=== PATIENT | female | born 1995 | race Caucasian/White ===

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

== ENCOUNTER 2019-07-05 03:35 | Observation (INO) ==
[2019-07-05] MEDS ORDERED: fentaNYL citrate 100 MCG/2 ML VIAL IV STA ×2 (04:07→05:32)
[2019-07-05] MEDS ORDERED: SODIUM CHLORIDE 0.9% 1000ML 1,000 ML IV ONE (04:07)
[2019-07-05] MEDS ORDERED: ONDANSETRON INJ 2 MG/ML 2 ML VIAL IV STA ×2 (04:07→06:59)
[2019-07-05 04:19] LABS: Basophils # (auto) 0.01 K/uL (0-0.2); Basophils % (auto) 0.1 %; Eosinophils # (auto) 0.05 K/uL (0-0.5); Eosinophils % (auto) 0.6 %; Hematocrit (blood only) 37.3 % (37-47); Hemoglobin 12.9 g/dL (12.0-16.0); Immature Granulocytes # (auto) 0.02 K/uL (0.00-0.02); Immature Granulocytes % (auto) 0.2 %; Lymphocytes # (auto) 2.59 K/uL (1.2-3.4); Lymphocytes % (auto) 31.6 %; Mean Corpuscular Hemoglobin 27.8 pg (25-34); Mean Corpuscular Hgb Conc 34.6 g/dL (32-36); Mean Corpuscular Volume 80.4 fL (80-100); Mean Platelet Volume 11.1 fL (7.4-10.4); Monocytes # (auto) 0.47 K/uL (0.11-0.59); Monocytes % (auto) 5.7 %; Neutrophils # (auto) 5.05 K/uL (1.4-6.5); Neutrophils % (auto) 61.8 %; Platelet Count 206 K/uL (130-400); RDW Coefficient of Variation 14.5 % (11.5-14.5); RDW Standard Deviation 41.1 fL (36.4-46.3); Red Blood Count 4.64 M/uL (4.2-5.4); White Blood Count 8.19 K/uL (4.8-10.8)
[2019-07-05] MEDS ORDERED: IOVERSOL 100ml IV PRN (04:33)
[2019-07-05 04:48] LABS: Pregnancy Test, Serum Negative (Negative)
[2019-07-05 04:49] LABS: Alanine Aminotransferase 30 U/L (12-78); Albumin Level 3.6 gm/dl (3.4-5.0); Alkaline Phosphatase 98 U/L (45-117); Aspartate Aminotransferase 19 U/L (15-37); BUN Creatinine Ratio 7.5 (10-20); Bilirubin,Total 0.3 mg/dl (0.2-1); Blood Urea Nitrogen 6 mg/dl (7-18); Calcium 8.7 mg/dl (8.5-10.1); Carbon Dioxide 19 mmol/L (21-32); Chloride 111 mmol/L (98-107); Est GFR (Non-African American) 112.1; Glucose 88 mg/dl (70-99); Lipase 78 U/L (73-393); Sodium 139 mmol/L (136-145)
[2019-07-05 05:04] LABS: Appearance Urine Clear (Clear); Bilirubin Urine Negative (Negative); Blood Urine Negative (Negative); Color Urine Yellow; Glucose Urine UA Negative (Negative); Ketones Urine Negative (Negative); Leukocyte Esterase Urine Negative (Negative); Nitrite Urine Negative (Negative); Protein Urine Negative (Negative); Specific Gravity Urine 1.009 (1.000-1.030); Urobilinogen Urine Negative (Negative); pH Urine 5.5 (4.5-7.5)
--- NOTE | 2019-07-05 06:22 | CT Scan Report ---
CT abd pelvis IV con only CT DOSE: 642.15 mGy.cm HISTORY: Pain diffuse abdominal pain s/p colonoscopy TECHNIQUE: Multiaxial CT images of the abdomen and pelvis were performed following the use of intrave nous contrast. A dose lowering technique was utilized adhering to the principles of ALARA. COMPARISON STUDY: None. FINDINGS: Lung bases are clear. Liver spleen and pancreas are unremarkable. Kidneys negative for hydr onephrosis. Prior cholecystectomy. Kidneys enhance uniformly. Nonobstructive bowel pattern. Normal appendix. Bilateral septated ovarian cyst. On the left, cysts are present measuring 3.3 and 2.5 cm bilaterally. On the right there is a cyst measuring 2.6 cm. There is a moderate amount of fluid within the pelvic cul-de-sac. Findings of chronic sigmoid diverticulosis are present. IMPRESSION: 1. Bilateral ovarian cysts. 2. Moderate free fluid within the pelvic cul-de-sac. 3. Mild chronic sigmoid diverticulosis. 4. Prior cholecystectomy. ACT 112: Negative or not required by law. The above report was generated using voice recognition software. It may contain grammatical, syntax or spelling errors. Electronically signed by: Nghia Seo M.D. 07/05/2019 6:20 AM
[2019-07-05] MEDS ORDERED: HYDROmorphone INJ 0.5 MG/0.5 ML SYR IV PRN (06:30)
[2019-07-05] MEDS ORDERED: HYDROmorphone INJ 1 MG/ML SYRINGE IV STA (06:30)
--- NOTE | 2019-07-05 06:58 | Emergency Department Note ---
Entered by Jeffry Snow acting as a scribe for Mike Murray MD ED Provider Note Name: Mariella Rivera Age: 23 Arrives Via: Walk in Informant: Patient CC: Abdominal pain HPI: The patient is a 23 year old female who presents to the emergency [facility] with complaints of constant abdominal pain beginning yesterday. The patient states that she has a history of Celiacs disease, hypothyroidism, gastroparesis, and endometriosis. She notes that she developed abdominal pain yesterday, and she reports that her pain worsened last night. The patient states that her pain is mostly in her lower abdomen, and she notes that her pain worsens with movement. She rates her pain as a 9/10. She reports that she has 6- 7 episodes of bloody diarrhea a day. She denies any vomiting and urinary symptoms. She reports that she had a colonoscopy done a week ago, and she states that she has had a cholecystectomy. ROS: See above HPI for pertinent positives & negatives. A total of 10 systems reviewed and were otherwise negative. Past Medical History: Celiac disease, hypothyroid, gastroparesis, previous C diff infections, endometriosis, asthma, ADHD Past Surgical History: Cholecystectomy, tonsillectomy, adenoidectomy, wisdom teeth extraction, EGD Family History: Cancer, hypothyroid, asthma Social History: [employer] student, lives with roommates, never smoker, drinks alcohol, does not use drugs Home Medications: Please see medication list Allergies: Penicillin, wheat Physical: Vitals: BP 150/87, Pulse 121, Resp 20, Temp 98.2 F, O2 Sat Exam: GENERAL: Patient is severely uncomfortable appearing and in no acute distress. Writhing around bed. Dehydrated appearing. EYES: No scleral icterus, unremarkable pupils. ENT: Mucous membranes dry, no nasal congestion. NECK: No masses appreciated, no meningismus, trachea is midline. RESPIRATORY: No dyspnea. Clear to auscultation and equal bilaterally. No wheeze, no rhonchi. CARDIOVASCULAR: Regular rate and rhythm. No murmurs, rubs, gallops appreciated. GASTROINTESTINAL: Abdomen soft, no peritonitis. Bowel sounds positive. No masses appreciated. Diffuse tenderness throughout entire abdomen. BACK: No midline tenderness, no CVA tenderness EXTREMITIES: Normal motion all extremities, no cyanosis, no edema. NEUROLOGIC: Alert and oriented, no acute motor or sensory deficits, no focal weakness, cranial nerves grossly intact. SKIN: No rash, no jaundice, no diaphoresis. ED Course: Prior Medical Record, Triage/Nursing Notes, Medications, Allergies reviewed by Me 0401: Per review of EMR, the patient has a history of Celiac's disease, hypothyroid, gastroparesis, and previous C diff infections. She has been worked up for Crohn's disease, but endoscopically has no findings of this. The patient has had multiple EGDs and colonoscopies. She is on a fluid diet and azithromycin. She has 4-5 episodes of diarrhea a day and has fecal incontinence at night. She had repeat labs and a repeat colonoscopy done a week ago, but the results have not yet returned. 0403: The patient was evaluated in room A11. A complete history and physical exam was performed. 0500: I rechecked the patient. She has improvement of her pain and declined further pain medication. 0630: I reevaluated and updated the patient. She states that her pain is starting to return. She denies any history of ovarian cysts. She notes that she is unaware of cysts on an US she had from several months ago. Declines me calling parents. Vital Signs: reviewed and remarkable for tachy, hypertensive Labs: Reviewed and remarkable for wnl Interventions: saline lock, nss bolus 1 L IV, fentanyl 75mcg IV x 2, Dilaudid 1 mg IV Imaging: Radiology results as stated below per my review and the radiologist's interpretation: CT abd pelvis IV con only FINDINGS: Lung bases are clear. Liver spleen and pancreas are unremarkable. Kidneys negative for hydronephrosis. Prior cholecystectomy. Kidneys enhance uniformly. Nonobstructive bowel pattern. Normal appendix. Bilateral septated ovarian cyst. On the left, cysts are present measuring 3.3 a nd 2.5 cm bilaterally. On the right there is a cyst measuring 2.6 cm. There is a moderate amount of fluid within the pelvic cul-de-sac. Findings of chronic sigmoid diverticulosis are present. IMPRESSION: 1. Bilateral ovarian cysts. 2. Moderate free fluid within the pelvic cul-de-sac. 3. Mild chronic sigmoid diverticulosis. 4. Prior cholecystectomy. ACT 112: Negative or not required by law. The above report was generated using voice recognition software. It may contain grammatical, syntax or spelling errors. Electronically signed by: Nghia Seo M.D. 07/05/2019 6:20 AM Blood pressure: Normal. No Referral necessary Disposition: Signed out to Dr Hanson pending US Differential: Appendicitis, Ovarian Issue, Perforated bowel, Diverticulitis, PUD/Gastritis, Biliary Pathology, UTI, Pyelonephritis, Renal Colic, Bowel Obstruction, amongst other pathologies entertained. Medical Decision Makin yr old female with Celiac disease, hypothyroid, gastroparesis, previous C diff infections, endometriosis, asthma, ADHD who had Colonoscopy last week and arrives with acutely worsening lower abdominal pain radiating throughout. Pain difficult to control here. Labs OK with Vitals improved with pain control and fluids. CT with bilateral ovarian cysts and left septated one with moderate free fluid in pelvis. Given continued pain and these findings US ordered for further evaluation. Signed out to Dr Hanson for further management. Impression: Ruptured Ovarian Cyst Mike Murray MD The scribe's documentation has been prepared under my direction and personally reviewed by me in its entirety. I confirm that the note above accurately reflects all work, treatment, procedures, and medical decision making performed by me. Impression & Plan Ovarian cyst rupture Past Med/Surg History Medical History (Updated 07/05/19 @ 06:58 by Mike Murray MD) ADHD (attention deficit hyperactivity disorder) (Acute) Anemia Asthma inhaler daily Celiac disease Endometriosis Gastroparesis History of Clostridium difficile colitis Hypothyroidism IBS (irritable bowel syndrome) (Acute) IBS (irritable bowel syndrome) Migraine Surgical History (Updated 03/16/19 @ 08:41 by Meenakshi Lindquist RN) H/O colonoscopy History of esophagogastroduodenoscopy (EGD) History of repair of left rotator cuff History of tonsillectomy and adenoidectomy S/P cholecystectomy S/P wisdom tooth extraction Family History (Updated 03/16/19 @ 13:35 by Rachelle Zaldivar) Grandmother (Paternal) Colorectal cancer Mother Hypothyroid BCC (basal cell carcinoma of skin) Father Asthma Other No family history of adverse response to anesthesia Social History Preferred Language: [place] Citizen Communication Ability: Effective 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 Beliefs That Will Affect Care: None Current Living Situation: Other Current Living Situation Comment: [employer] with 3 roommates Feels Safe at Home: Yes Smoking Status: Never smoker Second Hand Exposure: No ; Hx Alcohol Use: Yes Alcohol type: wine and hard liquor Hx Substance Use: No Results & Data Vital Signs Vital Signs - 24 hr 07/05/19 03:38 07/05/19 05:26 07/05/19 06:20 Temperature 36.8 C Temperature Source Oral Pulse Rate 121 H Pulse Rate [Right Finger] 85 73 Pulse Rhythm [Right Finger] Regular Regular Pulse Strength [Right Finger] Normal Normal Respiratory Rate 20 18 16 Respiratory Effort / Characteristics Non-Labored Non-Labored Respiratory Depth Normal Normal Normal Blood Pressure 150/87 H Blood Pressure [Right Arm] 111/56 L 104/52 L Blood Pressure Mean 108 Blood Pressure Mean [Right Arm] 74 69 Blood Pressure Position Sitting Blood Pressure Position [Right Arm] Lying Lying Pulse Oximetry 99 98 97 Oxygen Delivery Method Room Air Room Air Room Air Sepsis Recent Fever Within 48 Hours No Sepsis Action Taken by Nursing No Action Required 07/05/19 06:43 Temperature Temperature Source Pulse Rate Pulse Rate [Right Finger] 88 Pulse Rhythm [Right Finger] Pulse Strength [Right Finger] Respiratory Rate 16 Respiratory Effort / Characteristics Respiratory Depth Normal Blood Pressure Blood Pressure [Right Arm] 105/60 Blood Pressure Mean Blood Pressure Mean [Right Arm] 75 Blood Pressure Position Blood Pressure Position [Right Arm] Lying Pulse Oximetry 98 Oxygen Delivery Method Room Air Sepsis Recent Fever Within 48 Hours Sepsis Action Taken by Half-Way Medications Current Medication List: was personally reviewed by me Laboratory Data Attestation: I reviewed the patient's lab results. Result diagrams: 07/05/19 04:10 07/05/19 04:10 Lab Results 07/05/19 07/05/19 07/05/19 Range/Units 04:10 04:10 04:10 WBC 8.19 (4.8-10.8) K/uL RBC 4.64 (4.2-5.4) M/uL Hgb 12.9 (12.0-16.0) g/dL Hct 37.3 (37-47) % MCV 80.4 (80-100) fL MCH 27.8 (25-34) pg MCHC 34.6 (32-36) g/dL RDW Std Deviation 41.1 (36.4-46.3) fL RDW Coeff of Leah 14.5 (11.5-14.5) % Plt Count 206 (130-400) K/uL MPV 11.1 H (7.4-10.4) fL Immature Gran % (Auto) 0.2 % Neut % (Auto) 61.8 % Lymph % (Auto) 31.6 % Pennington % (Auto) 5.7 % Eos % (Auto) 0.6 % Baso % (Auto) 0.1 % Immature Gran # (Auto) 0.02 (0.00-0.02) K/uL Neut # (Auto) 5.05 (1.4-6.5) K/uL Lymph # (Auto) 2.59 (1.2-3.4) K/uL Pennington # (Auto) 0.47 (0.11-0.59) K/uL Eos # (Auto) 0.05 (0-0.5) K/uL Baso # (Auto) 0.01 (0-0.2) K/uL Sodium 139 (136-145) mmol/L Potassium 4.0 (3.5-5.1) mmol/L Chloride 111 H (98-107) mmol/L Carbon Dioxide 19 L (21-32) mmol/L Anion Gap 9.0 (3-11) BUN 6 L (7-18) mg/dl Creatinine 0.76 (0.6-1.2) mg/dl POC Creatinine (0.6-1.3) mg/dl Est Cr Clr Drug Dosing Not Reportable Est GFR ( Amer) 130.0 Est GFR (Non-Af Amer) 112.1 BUN/Creatinine Ratio 7.5 L (10-20) Glucose 88 (70-99) mg/dl Calcium 8.7 (8.5-10.1) mg/dl Total Bilirubin 0.3 (0.2-1) mg/dl Direct Bilirubin (0-0.2) mg/dl AST 19 (15-37) U/L ALT 30 (12-78) U/L Alkaline Phosphatase 98 (45-117) U/L Total Protein 7.0 (6.4-8.2) gm/dl Albumin 3.6 (3.4-5.0) gm/dl Lipase 78 (73-393) U/L HCG, Qual Negative (Negative) Specimen Hemolysis Urine Color Urine Appearance (Clear) Urine pH (4.5-7.5) Ur Specific Edmondson (1.000-1.030) Urine Protein (Negative) Urine Glucose (UA) (Negative) Urine Ketones (Negative) Urine Blood (Negative) Urine Nitrite (Negative) Urine Bilirubin (Negative) Urine Urobilinogen (Negative) Ur Leukocyte Esterase (Negative) 07/05/19 07/05/19 Range/Units 04:11 04:17 WBC (4.8-10.8) K/uL RBC (4.2-5.4) M/uL Hgb (12.0-16.0) g/dL Hct (37-47) % MCV (80-100) fL MCH (25-34) pg MCHC (32-36) g/dL RDW Std Deviation (36.4-46.3) fL RDW Coeff of Leah (11.5-14.5) % Plt Count (130-400) K/uL MPV (7.4-10.4) fL Immature Gran % (Auto) % Neut % (Auto) % Lymph % (Auto) % Pennington % (Auto) % Eos % (Auto) % Baso % (Auto) % Immature Gran # (Auto) (0.00-0.02) K/uL Neut # (Auto) (1.4-6.5) K/uL Lymph # (Auto) (1.2-3.4) K/uL Pennington # (Auto) (0.11-0.59) K/uL Eos # (Auto) (0-0.5) K/uL Baso # (Auto) (0-0.2) K/uL Sodium (136-145) mmol/L Potassium (3.5-5.1) mmol/L Chloride (98-107) mmol/L Carbon Dioxide (21-32) mmol/L Anion Gap (3-11) BUN (7-18) mg/dl Creatinine (0.6-1.2) mg/dl POC Creatinine 0.9 (0.6-1.3) mg/dl Est Cr Clr Drug Dosing Est GFR ( Amer) Est GFR (Non-Af Amer) BUN/Creatinine Ratio (10-20) Glucose (70-99) mg/dl Calcium (8.5-10.1) mg/dl Total Bilirubin (0.2-1) mg/dl Direct Bilirubin (0-0.2) mg/dl AST (15-37) U/L ALT (12-78) U/L Alkaline Phosphatase (45-117) U/L Total Protein (6.4-8.2) gm/dl Albumin (3.4-5.0) gm/dl Lipase (73-393) U/L HCG, Qual (Negative) Specimen Hemolysis Urine Color Yellow Urine Appearance Clear (Clear) Urine pH 5.5 (4.5-7.5) Ur Specific Edmondson 1.009 (1.000-1.030) Urine Protein Negative (Negative) Urine Glucose (UA) Negative (Negative) Urine Ketones Negative (Negative) Urine Blood Negative (Negative) Urine Nitrite Negative (Negative) Urine Bilirubin Negative (Negative) Urine Urobilinogen Negative (Negative) Ur Leukocyte Esterase Negative (Negative) Administered Medications Ioversol (Optiray 320 100ml) 100 ml IV ONCE PRN PRN Reason: Interaction Checking Stop: 07/09/19 04:32 Last Admin: 07/05/19 04:33 Dose: 92 ml Documented by: [id number] Discontinued Medications Fentanyl Citrate (Fentanyl Citrate) 75 mcg IV NOW STA Stop: 07/05/19 04:08 Last Admin: 07/05/19 04:22 Dose: 75 mcg Documented by: [id number] Fentanyl Citrate (Fentanyl Citrate) 75 mcg IV NOW STA Stop: 07/05/19 05:33 Last Admin: 07/05/19 05:37 Dose: 75 mcg Documented by: [id number] Hydromorphone HCl (Dilaudid) 1 mg IV NOW STA Stop: 07/05/19 06:31 Last Admin: 07/05/19 06:36 Dose: 1 mg Documented by: [id number] Sodium Chloride (Nss 1000ml) 1,000 mls @ 999 mls/hr IV .Q1H1M ONE Stop: 07/05/19 05:07 Last Infusion: 07/05/19 05:37 Dose: 0 mls/hr Documented by: [id number] Admin: 07/05/19 04:22 Dose: 999 mls/hr Documented by: [id number] Ondansetron HCl (Zofran) 4 mg IV NOW STA Stop: 07/05/19 04:08 Last Admin: 07/05/19 04:22 Dose: 4 mg Documented by: [id number] Discharge Plan Visit Data Chief Complaint: Abdominal Pain Stated Complaint: SEVERE ABDOMINAL PAIN ED Provider: Trevor,Mike F Discharge Problem: Ovarian cyst rupture Forms Stand Alone Forms: My [facility] Prescriptions Prescriptions: No Action 1.5/30 (28) 1.5 mg-30 mcg (21)/75 mg (7) tablet 1 tab PO DAILY Qty: 28 RF: 9 esomeprazole magnesium [Nexium] 40 mg capsule,delayed release(DR/EC) 40 mg PO QAM RF: 0 fluticasone propion-salmeterol [Wixela Inhub] 250-50 mcg/dose blister with device 1 puffs INH BID RF: 0 clindamycin phosphate 1 % lotion 1 appln TOP BID Qty: 60 RF: 1 fluocinonide 0.05 % solution 1 appln TOP BID Qty: 60 RF: 1 ketoconazole 2 % shampoo 1 appln TOP ONCE Qty: 120 RF: 2 levothyroxine 88 mcg tablet 88 mcg PO QAM RF: 0 ferrous sulfate [Iron (ferrous sulfate)] 325 mg (65 mg iron) Tablet 325 mg PO QAM RF: 0 cholecalciferol (vitamin D3) [Vitamin D3] 1,000 unit Capsule 1,000 unit PO QAM RF: 0 The scribe's documentation has been prepared under my direction and personally reviewed by me in its entirety. I confirm that the note above accurately reflects all work, treatment, procedures, and medical decision making performed by me.
[2019-07-05] MEDS ORDERED: ONDANSETRON INJ 2 MG/ML 2 ML VIAL IV PRN ×2 (07:00→09:44)
--- NOTE | 2019-07-05 07:13 | Emergency Department Note ---
ED Visit Note Received patient in signout. History and physical verified by me. Patient is awaiting ultrasound results. Reviewed patient's ultrasound with her. At this point I feel the patient can be safely discharged home with pain medication however the patient is refusing. She wishes to have admission. I did discuss the case with the hospitalist service who did agree to admit the patient. .
--- NOTE | 2019-07-05 08:03 | Ultrasound Report ---
US pelvic complete HISTORY: 23 years-old Female pelvic pain, free fluid in pelvis, cysts on CT acute pelvic pain with h istory of endometriosis. COMPARISON: CT abdomen and pelvis of same day TECHNIQUE: Multiple real-time sonographic images of the deep pelvic structures were obtained transabd ominally and transvaginally assessing grayscale appearance, color and spectral flow FINDINGS: TRANSABDOMINAL: Anteflexed uterus measures 7.4 x 3.4 x 4.8 cm. Ovaries are not well seen transabdominally. TRANSVAGINAL: Mild to moderate free fluid within the cul-de-sac. Endometrium is unremarkable, 4 mm. Uterus appears unremarkable without myometrial mass lesion. Right ovary measures 1.8 x 2.7 x 1.9 cm. Right ovary is partially obscured by bowel. Mildly complex c ystic focus of the right ovary measures 1.3 cm. Arterial inflow and venous outflow to the right ovary is documented. Left ovary measures 4.1 x 4.9 x 4.9 cm demonstrating multiple cystic foci suggestive of follicles. Th ick-walled cystic lesion of the left ovary measures 3.6 x 2.5 x 2.2 cm. Mildly complex cystic structu re of the left ovary is noted posteriorly, 2.0 x 1.2 x 2.6 cm. Arterial inflow and venous outflow to the left ovary is documented. IMPRESSION: 1. Unremarkable sonographic appearance of uterus and endometrium. 2. Mild to moderate free fluid within the cul-de-sac. 3. Multiple small cystic and mildly complex cystic foci of the ovaries as above including what appear s to be a simple cyst of left ovary measuring 3.0 cm. 4. No large endometriomas or evidence of ovarian torsion. ACT 112: Negative or not required by law. The above report was generated using voice recognition software. It may contain grammatical, syntax o r spelling errors. Electronically signed by: Markus Charles M.D. 07/05/2019 8:01 AM
[2019-07-05] MEDS ORDERED: ACETAMINOPHEN 325 MG TAB PO PRN (09:44)
[2019-07-05] MEDS ORDERED: IRON SUCROSE 100 MG in 0.9 % SODIUM CHLORIDE 100 ML IV SCH (09:44)
[2019-07-05] MEDS ORDERED: HYDROmorphone INJ 1 MG/ML SYRINGE IV PRN (09:44)
[2019-07-05] MEDS: SODIUM CHLORIDE 0.9% 1000ML 1,000 ML IV SCH ×2 (10:35→22:16)
[2019-07-05] MEDS: PROCHLORPERAZINE 10 MG in SYRINGE 8 ML IV PRN (10:46)
[2019-07-05] MEDS ORDERED: IRON SUCROSE 300 MG in SODIUM CHLORIDE 0.9% 250 ML IV SCH (11:00)
--- NOTE | 2019-07-05 11:01 | Gastrointestinal Consultation ---
Date of Consultation July 05, 2019 Assessment & Plan (1) Celiac disease: Recent TTG normal -Continue 100% gluten-free diet -Continue follow-up with [facility] (2) Abdominal pain: -Mom is requesting SE[employer] eval due to ovarian cysts--will defer to hospitalist service -GI symptoms are stable and patient identifies that the current pain is not desk representative of her chronic GI issues; Would encourage her to follow-up with [facility] regarding the results of her biopsies from her colonoscopy last week. Of note, their outpatient records suggested a trial of Amitriptyline if her colonoscopy is unremarkable. Of note, patient's mother also reported that she is to have an iron infusion per hematology today. She reports that they were told by hematology that this could be given as an inpatient. Will defer this to hospitalist service. No plans for GI intervention at present, so there is presently no GI objection to feeding the patient. Present on Admission?: Yes (3) Gastroparesis: -Continue gastroparesis diet -Continue outpatient follow-up with [facility] Present on Admission?: Yes Supervising Physician Co-Signing Physician Notes Agree with MARCELO Dejesus as above Abd: Soft, Tender, ND, +BS Continue current therapy Will request records from recent EGD/Colonoscopy Appreciate Dr. rAce's input History of Present Illness Reason for Consultation: "abdominal pain, h/o of Celiac Disease" Attending Physician: Ji Mcintyre History of Present Illness Patient is a 23 yo female with a PMH of gastroparesis, Celiac Disease, IBS, & functional abdominal pain treated initially at [facility] then transitioned to [facility] as an adult. She is currently under their care and most recently saw them last week for a colonoscopy to r/o Crohn's Disease. The patient reports that recently, she developed a different kind of abdominal pain which she describes as lower, pelvic abdominal pain. 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 Ultrasounds on admission indicated ovarian cysts. From a GI standpoint, she reports all of her symptoms are stable and have not worsened throughout this episode. She follows a gluten-free diet and this helps significantly. She is awaiting biopsy results from [facility] from the colonoscopy last week. She had an EGD & colonoscopy in March 2019 as well that were unremarkable. She denies nausea, vomiting, or worsening bowel habit changes. Mom is at bedside and is questioning SE[employer] eval. Allergies Allergy/AdvReac Type Severity Reaction Status Date / Time gluten Allergy Severe celiac's Verified 07/05/19 04:08 disease wheat Allergy Severe celiac's Verified 07/05/19 04:08 disease Penicillins Allergy Intermediate Hives Verified 07/05/19 04:08 Home Medications Home Medications Medication Instructions Recorded Confirmed Type esomeprazole magnesium 40 mg 40 mg PO QAM cap 01/17/19 07/05/19 History capsule,delayed release cholecalciferol (vitamin D3) 1,000 unit PO QAM 03/16/19 07/05/19 History [Vitamin D3] ferrous sulfate [Iron (ferrous 325 mg PO QAM 03/16/19 07/05/19 History sulfate)] fluticasone 250 mcg-salmeterol 50 1 puffs INH BID 03/16/19 07/05/19 History mcg/dose blistr powdr for inhalation levothyroxine 88 mcg PO QAM 03/16/19 07/05/19 History norethindrone 1.5 mg-ethinyl 1 tab PO DAILY #28 tab 05/08/19 07/05/19 Rx estradiol 30 mcg(21)/iron 75 mg(7) tablet clindamycin phosphate 1 % lotion 1 appln TOP BID #60 ml 06/30/19 07/05/19 Rx fluocinonide 0.05 % topical 1 appln TOP BID #60 ml 06/30/19 07/05/19 Rx solution ketoconazole 2 % shampoo 1 appln TOP ONCE #120 ml 06/30/19 07/05/19 Rx Patient History Medical History ADHD (attention deficit hyperactivity disorder) (Acute) Anemia Asthma inhaler daily Celiac disease Endometriosis Gastroparesis History of Clostridium difficile colitis Hypothyroidism IBS (irritable bowel syndrome) (Acute) IBS (irritable bowel syndrome) Migraine Surgical History H/O colonoscopy History of esophagogastroduodenoscopy (EGD) History of repair of left rotator cuff History of tonsillectomy and adenoidectomy S/P cholecystectomy S/P wisdom tooth extraction Family History Grandmother (Paternal) Colorectal cancer Mother Hypothyroid BCC (basal cell carcinoma of skin) Father Asthma Other No family history of adverse response to anesthesia Social History Preferred Language: [place] Communication Ability: Effective C Unix 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 Required: No Beliefs That Will Affect Care: None Current Living Situation: Other Current Living Situation Comment: Roommate Other Information That Helps Us Care for You: No Feels Safe at Home: Yes Safety Concerns: Feels Safe At This Time Smoking Status: Never smoker Second Hand Exposure: No ; Hx Alcohol Use: Yes Alcohol type: beer and wine Hx Substance Use: No Review of Systems Constitutional: no fever and no chills Eyes: no acute issues Ear, Nose, Mouth, Throat: no acute issues Respiratory: no cough and no dyspnea Cardiovascular: no chest pain Gastrointestinal: + abdominal pain; no vomiting, no diarrhea/loose stools and no blood in stools Musculoskeletal: no joint pain Integumentary: no rash Neurologic: no acute issues Psychiatric: no acute issues Physical Exam Constitutional: WD/WN, vitals as above Eyes: PERRL, conjunctivae normal, anicteric sclerae ENMT: external ear and nose normal, oropharynx normal Neck: normal visual inspection Respiratory: normal respiratory effort, lungs clear to auscultation Cardiovascular: RRR, no murmur, no edema Gastrointestinal (Abdomen): normal bowel sounds, soft, nontender, no hepatosplenomegaly Musculoskeletal: no cyanosis or clubbing, extremities motor strength 5/5 Skin: no rashes, warm and dry Neurologic: normal speech Psychiatric: Orientation: alert and oriented x 3 Results & Data Vital Signs (Past 12 Hours) Vital Signs Temp Pulse Pulse Resp BP BP Pulse Ox 07/05/19 09:46 36.9 C 95 H 18 125/67 94 07/05/19 09:15 95 H 18 123/65 96 07/05/19 07:42 83 16 124/72 99 07/05/19 06:43 88 16 105/60 98 07/05/19 06:20 73 16 104/52 L 97 07/05/19 05:26 85 18 111/56 L 98 07/05/19 03:38 36.8 C 121 H 20 150/87 H 99 PG Care Time/CCT Total # of Minutes Spent Total Time Spent with Patient: Total time spent is greater than 50% in coordination of care (as documented) at patient's floor/unit and/or counseling patient: Coding Level of Care Code 52084 Inpt Consult Level 4 Diagnoses Celiac disease K90.0 Abdominal pain R10.30 Abdominal location: lower abdomen, unspecified Gastroparesis K31.84 (1) Abdominal pain Abdominal location: lower abdomen, unspecified Qualified Code(s): R10.30 - Lower abdominal pain, unspecified
--- NOTE | 2019-07-05 11:21 | Surgery Consultation ---
Date of Consultation July 05, 2019 Assessment & Plan (1) Ovarian cyst: This is a 23y F with a PMH of celiac's dz, h/o cdiff infection,gastroparesis, IBS, and is being worked up for Crohn's disease who presents to the [facility] today with abdominal pain. Workup with a CT and pelvic US revealed findings consistent with bilateral ovarian cysts and mild/moderate fluid in the pelvic cul de sac. Patient is afebrile and WBC 8.1. Findings likely consistent with a ruptured ovarian cyst? Would recommend patient be evaluated by gynecology for further evaluation. There are no findings on imaging or abdominal exam that at this time warrant surgical intervention. Please call us back if needed with any questions/concerns. History of Present Illness Attending Physician: Ji Mcintyre History of Present Illness This is a 23y F with a PMH of celiac's dz, h/o cdiff infection, gastroparesis, IBS, and is being worked up for Crohn's disease who presents to the [facility] ED this morning with complaints of abdominal pain. Patient reports that the pain started about 24 hours ago, but progressively worsened around 2AM. She says the pain is mostly located in the lower abdomen, sharp and stabbing in quality. Rates it a 10/10 when she came in and is now a 7/10 with any movement. She endorses nausea without vomiting and abdominal bloating. She denies fevers/chills, chest pain/ shortness of breath, or any urinary signs and symptoms. In the ED patient underwent a CT a/p that revealed bilateral ovarian cysts, with moderate fluid within the cul-de-sac. A pelvic US obtained thereafter showed similar findings, with no e/o ovarian torsion and a normal appearing uterus. She states her LMP was 1 wk ago, for her it lasts two days. She denies any vaginal pain, discharge, or urinary symptoms. Patient had a colonoscopy 1 wk ago at [facility] where biopsies where taken to evaluate for Crohn's. She says she normally has 5-6 bouts of diarrhea daily, sometimes bloody. Patient concerned as this pain is not similar to her pain related to her other chronic abdominal issues. Surgery was consulted for further evaluation. Allergies Allergy/AdvReac Type Severity Reaction Status Date / Time gluten Allergy Severe celiac's Verified 07/05/19 04:08 disease wheat Allergy Severe celiac's Verified 07/05/19 04:08 disease Penicillins Allergy Intermediate Hives Verified 07/05/19 04:08 Home Medications Home Medications Medication Instructions Recorded Confirmed Type esomeprazole magnesium 40 mg 40 mg PO QAM cap 01/17/19 07/05/19 History capsule,delayed release cholecalciferol (vitamin D3) 1,000 unit PO QAM 03/16/19 07/05/19 History [Vitamin D3] ferrous sulfate [Iron (ferrous 325 mg PO QAM 03/16/19 07/05/19 History sulfate)] fluticasone 250 mcg-salmeterol 50 1 puffs INH BID 03/16/19 07/05/19 History mcg/dose blistr powdr for inhalation levothyroxine 88 mcg PO QAM 03/16/19 07/05/19 History norethindrone 1.5 mg-ethinyl 1 tab PO DAILY #28 tab 05/08/19 07/05/19 Rx estradiol 30 mcg(21)/iron 75 mg(7) tablet clindamycin phosphate 1 % lotion 1 appln TOP BID #60 ml 06/30/19 07/05/19 Rx fluocinonide 0.05 % topical 1 appln TOP BID #60 ml 06/30/19 07/05/19 Rx solution ketoconazole 2 % shampoo 1 appln TOP ONCE #120 ml 06/30/19 07/05/19 Rx Patient History Medical History ADHD (attention deficit hyperactivity disorder) (Acute) Anemia Asthma inhaler daily Celiac disease Endometriosis Gastroparesis History of Clostridium difficile colitis Hypothyroidism IBS (irritable bowel syndrome) (Acute) IBS (irritable bowel syndrome) Migraine Surgical History H/O colonoscopy History of esophagogastroduodenoscopy (EGD) History of repair of left rotator cuff History of tonsillectomy and adenoidectomy S/P cholecystectomy S/P wisdom tooth extraction Family History Grandmother (Paternal) Colorectal cancer Mother Hypothyroid BCC (basal cell carcinoma of skin) Father Asthma Other No family history of adverse response to anesthesia Social History Preferred Language: Indian Communication Ability: Effective Mold Puller Required: No Beliefs That Will Affect Care: None Current Living Situation: Other Current Living Situation Comment: Roommate Other Information That Helps Us Care for You: No Feels Safe at Home: Yes Safety Concerns: Feels Safe At This Time Smoking Status: Never smoker Second Hand Exposure: No ; Hx Alcohol Use: Yes Alcohol type: beer and wine Hx Substance Use: No Review of Systems Constitutional: no fever and no chills Respiratory: no shortness of breath Cardiovascular: no chest pain Gastrointestinal: + abdominal pain (lower abdominal region, a little more so on the right), + bloating, + nausea and + diarrhea/loose stools; no vomiting Genitourinary: patient denies urinary S&S Physical Exam Physical Exam: awake/alert Constitutional: well developed and well nourished; no acute distress Respiratory: normal respiratory effort Gastrointestinal (Abdomen): Inspection/Auscultation: abdomen not distended Percussion/Palpation: + abdomen tender (tenderness to palpation in the lower abdominal regions) and abdomen soft; abdomen not firm Results & Data Vital Signs (Past 12 Hours) Vital Signs Temp Pulse Pulse Resp BP BP Pulse Ox 07/05/19 09:46 36.9 C 95 H 18 125/67 94 07/05/19 09:15 95 H 18 123/65 96 07/05/19 07:42 83 16 124/72 99 07/05/19 06:43 88 16 105/60 98 07/05/19 06:20 73 16 104/52 L 97 07/05/19 05:26 85 18 111/56 L 98 07/05/19 03:38 36.8 C 121 H 20 150/[address] abd pelvis IV con only CT DOSE: 642.15 mGy.cm HISTORY: Pain diffuse abdominal pain s/p colonoscopy TECHNIQUE: Multiaxial CT images of the abdomen and pelvis were performed following the use of intravenous contrast. A dose lowering technique was utilized adhering to the principles of ALARA. COMPARISON STUDY: None. FINDINGS: Lung bases are clear. Liver spleen and pancreas are unremarkable. Kidneys negative for hydronephrosis. Prior cholecystectomy. Kidneys enhance uniformly. Nonobstructive bowel pattern. Normal appendix. Bilateral septated ovarian cyst. On the left, cysts are present measuring 3.3 and 2.5 cm bilaterally. On the right there is a cyst measuring 2.6 cm. There is a moderate amount of fluid within the pelvic cul-de-sac. Findings of chronic sigmoid diverticulosis are present. IMPRESSION: 1. Bilateral ovarian cysts. 2. Moderate free fluid within the pelvic cul-de-sac. 3. Mild chronic sigmoid diverticulosis. 4. Prior cholecystectomy. ACT 112: Negative or not required by law. The above report was generated using voice recognition software. It may contain grammatical, syntax or spelling errors. Electronically signed by: Nghia Seo M.D. 07/05/2019 6:20 AM US pelvic complete HISTORY: 23 years-old Female pelvic pain, free fluid in pelvis, cysts on CT acute pelvic pain with history of endometriosis. COMPARISON: CT abdomen and pelvis of same day TECHNIQUE: Multiple real-time sonographic images of the deep pelvic structures were obtained transabdominally and transvaginally assessing grayscale appearance, color and spectral flow FINDINGS: TRANSABDOMINAL: Anteflexed uterus measures 7.4 x 3.4 x 4.8 cm. Ovaries are not well seen transabdominally. TRANSVAGINAL: Mild to moderate free fluid within the cul-de-sac. Endometrium is unremarkable, 4 mm. Uterus appears unremarkable without myometrial mass lesion. Right ovary measures 1.8 x 2.7 x 1.9 cm. Right ovary is partially obscured by bowel. Mildly complex cystic focus of the right ovary measures 1.3 cm. Arterial inflow and venous outflow to the right ovary is documented. Left ovary measures 4.1 x 4.9 x 4.9 cm demonstrating multiple cystic foci suggestive of follicles. Thick-walled cystic lesion of the left ovary measures 3.6 x 2.5 x 2.2 cm. Mildly complex cystic structure of the left ovary is noted posteriorly, 2.0 x 1.2 x 2.6 cm. Arterial inflow and venous outflow to the left ovary is documented. IMPRESSION: 1. Unremarkable sonographic appearance of uterus and endometrium. 2. Mild to moderate free fluid within the cul-de-sac. 3. Multiple small cystic and mildly complex cystic foci of the ovaries as above including what appears to be a simple cyst of left ovary measuring 3.0 cm. 4. No large endometriomas or evidence of ovarian torsion. ACT 112: Negative or not required by law. The above report was generated using voice recognition software. It may contain grammatical, syntax or spelling errors. PG Care Time/CCT Total # of Minutes Spent Total Time Spent with Patient: Total time spent is greater than 50% in coordination of care (as documented) at patient's floor/unit and/or counseling patient: Coding Level of Care Code 62232 Inpt Consult Level 3 Diagnoses Ovarian cyst N83.209
[2019-07-05] MEDS: PANTOprazole 40 MG TAB PO SCH (13:09)
[2019-07-05] MEDS: LEVOTHYROXINE SODIUM 88 MCG TABLET PO SCH (13:10)
[2019-07-05] MEDS: ERYTHROMYCIN ETHYLSUCC SUSP 200 MG/5 ML 100 ML BTL PO SCH ×3 (13:10→22:51)
--- NOTE | 2019-07-05 14:52 | History & Physical Report ---
Date of Service July 05, 2019 Assessment & Plan (1) Pelvic pain: - Likely related to ovarian cysts with possible rupture. - Imaging showed bilateral ovarian cysts with moderate free fluid within the pelvic cul-de-sac. - U/a negative; Lipase level WNL. - General surgery consulted, does not require intervention. - GI consulted, is not likely related to underlying GI abnormality. - Gynecology consulted, appreciate input. - Tylenol prn mild pain; Dilaudid IV prn severe pain -- pt. reports she cannot take Oxycodone, h/o hematemesis with oral narcotic. - IV fluids at 80 cc/hr; advance to gluten free diet for dinner. (2) Ovarian cyst: - As noted above. (3) Ovarian cyst rupture: - See above. (4) Endometriosis: - Pt. reports h/o endometriosis. - May be contributing to symptoms -- gynecology consulted. - Last menstrual period was last week. (5) Gastroparesis: - Continue home erythromycin 250 mg TID Wed-Wed. (6) Hypothyroidism: - Continue Synthroid 88 mcg daily. (7) Celiac disease: - H/o; follows with [facility]. - Consulted as inpatient, symptoms are not likely related to underlying celiac disease. - Continue gluten free diet. (8) Iron deficiency anemia: - On ferrous sulfate at home but scheduled to receive first IV iron infusion at cancer center today. - Has been evaluated by Dr. Baer in clinic. - Will give Venofer 300 mg IV x 1 dose; consider weekly infusions. (9) GERD (gastroesophageal reflux disease): - PPI daily. (10) History of Clostridium difficile colitis: - H/o; no evidence of acute infection at this time. (11) Uses control: - Continue home control as prescribed. (12) DVT prophylaxis: - SCDs; holding pharmacologic ppx, encourage ambulation. Dispo: Med/surg for obs status. Discharge pending improvement in abd/pelvic pain. History of Present Illness Chief Complaint: Pelvic pain Primary Care Provider: NO PCP Ms. Rivera is a 23 year old female with past medical history of hypothyroidism, GERD, ADHD, asthma, endometriosis, gastroparesis, migraines, celiac disease and C. diff colitis who presented with lower abdomen/pelvic pain. Pt. had a colonoscopy at [facility] on Wednesday of last week. She developed pelvic discomfort on Wednesday, rated as a 3/10 in the lower abdomen bilaterally. Pelvic pain was intermittent but increased in intensity this morning around 2:30 am. Pain was described as "stabbing", rated as a 8/10 without pain meds. Was worse in the RLQ>LLQ. She received multiple doses of IV narcotics in the ER; pain improved to 4-5/10 on pain scale. Has associated nausea, denies vomiting. Has been having bloody BMs over last 6 months -- led to colonoscopy on Wednesday. Denies fever/chills, SOB, chest pain, URI symptoms, dysuria or hematuria. ER course: She received Fentanyl and Dilaudid IV with mild improvement in pain. Will be admitted for further evaluation of pelvic pain. Allergies Allergy/AdvReac Type Severity Reaction Status Date / Time gluten Allergy Severe celiac's Verified 07/05/19 04:08 disease wheat Allergy Severe celiac's Verified 07/05/19 04:08 disease Penicillins Allergy Intermediate Hives Verified 07/05/19 04:08 Home Medications Home Medications Medication Instructions Recorded Confirmed Type esomeprazole magnesium 40 mg 40 mg PO QAM cap 01/17/19 07/05/19 History capsule,delayed release cholecalciferol (vitamin D3) 1,000 unit PO QAM 03/16/19 07/05/19 History [Vitamin D3] ferrous sulfate [Iron (ferrous 325 mg PO QAM 03/16/19 07/05/19 History sulfate)] fluticasone 250 mcg-salmeterol 50 1 puffs INH BID 03/16/19 07/05/19 History mcg/dose blistr powdr for inhalation levothyroxine 88 mcg PO QAM 03/16/19 07/05/19 History clindamycin phosphate 1 % lotion 1 appln TOP BID #60 ml 06/30/19 07/05/19 Rx ketoconazole 2 % shampoo 1 appln TOP ONCE #120 ml 06/30/19 07/05/19 Rx acetaminophen [Mapap 650 mg PO Q6H PRN #1 tab 07/06/19 Rx (acetaminophen)] clobetasol 0.05 % scalp solution 1 appln TOP DAILY #50 ml 07/06/19 Rx erythromycin 250 mg PO TID #1 tab 07/06/19 Rx norelgestromin 150 mcg-e.estradiol 1 patch TD Q7D #3 ea 07/06/19 Rx 35 mcg/24 hr weekly transderm patch norelgestromin 150 mcg-e.estradiol 1 patch TD Q7D #3 ea 07/06/19 Rx 35 mcg/24 hr weekly transderm patch Past Med/Surg History Medical History ADHD (attention deficit hyperactivity disorder) (Acute) Anemia Asthma inhaler daily Celiac disease Endometriosis Gastroparesis History of Clostridium difficile colitis Hypothyroidism IBS (irritable bowel syndrome) (Acute) IBS (irritable bowel syndrome) Migraine Surgical History H/O colonoscopy History of esophagogastroduodenoscopy (EGD) History of repair of left rotator cuff History of tonsillectomy and adenoidectomy S/P cholecystectomy S/P wisdom tooth extraction Family History Grandmother (Paternal) Colorectal cancer Mother Hypothyroid BCC (basal cell carcinoma of skin) Father Asthma Other No family history of adverse response to anesthesia Social History Preferred Language: Libyan Communication Ability: Effective Cigarette Tester Required: No Beliefs That Will Affect Care: None Current Living Situation: Other Current Living Situation Comment: Roommate Feels Safe at Home: Yes Smoking Status: Never smoker Second Hand Exposure: No ; Hx Alcohol Use: Yes Alcohol type: beer and wine Hx Substance Use: No Review of Systems Review of Systems: All systems reviewed & are unremarkable except as noted in HPI & below Constitutional: + anorexia; no fever, no chills, no fatigue and no weakness Respiratory: no cough, no dyspnea and no dyspnea on exertion Cardiovascular: no chest pain, no palpitations and no edema Gastrointestinal: + abdominal pain, + nausea and + melena; no vomiting, no constipation, no diarrhea/loose stools and no blood in stools Genitourinary: + pelvic pain; no dysuria, no difficulty urinating, no hematuria, no abnormal periods, no absent periods, no abnormal vaginal bleeding, no vaginal discharge and no vaginal odor Musculoskeletal: no back pain and no joint pain Integumentary: no non-healing lesions Physical Exam Physical Exam: General: Resting comfortably HEENT: NC/AT; PERRLA with EOMI; [place] conjunctiva, MMM. No erythema of posterior pharynx Neck: Supple and nontender Cardiac: RRR Lungs: CTA bilaterally Abdomen: Bowel normoactive X 4; TTP in pelvic region bilaterally. Rectal: Deferred : Deferred Extremities: Warm. No edema present Neuro: No focal weakness Skin: No rash Results & Data Vital Signs (Past 12 Hours) Vital Signs Temp Pulse Pulse Resp BP BP Pulse Ox 07/05/19 12:19 72 16 116/73 95 07/05/19 11:50 36.6 C 72 16 118/78 95 07/05/19 11:30 73 18 115/70 96 07/05/19 09:46 36.9 C 95 H 18 125/67 94 07/05/19 09:15 95 H 18 123/65 96 07/05/19 07:42 83 16 124/72 99 07/05/19 06:43 88 16 105/60 98 07/05/19 06:20 73 16 104/52 L 97 07/05/19 05:26 85 18 111/56 L 98 07/05/19 03:38 36.8 C 121 H 20 150/87 H 99 Laboratory Results 07/05/19 07/05/19 07/05/19 Range/Units 11:43 04:17 04:11 WBC (4.8-10.8) K/uL RBC (4.2-5.4) M/uL Hgb (12.0-16.0) g/dL Hct (37-47) % MCV (80-100) fL MCH (25-34) pg MCHC (32-36) g/dL RDW Std Deviation (36.4-46.3) fL RDW Coeff of Leah (11.5-14.5) % Plt Count (130-400) K/uL MPV (7.4-10.4) fL Immature Gran % (Auto) % Neut % (Auto) % Lymph % (Auto) % [place] % (Auto) % Eos % (Auto) % Baso % (Auto) % Immature Gran # (Auto) (0.00-0.02) K/uL Neut # (Auto) (1.4-6.5) K/uL Lymph # (Auto) (1.2-3.4) K/uL [place] # (Auto) (0.11-0.59) K/uL Eos # (Auto) (0-0.5) K/uL Baso # (Auto) (0-0.2) K/uL Sodium (136-145) mmol/L Potassium (3.5-5.1) mmol/L Chloride (98-107) mmol/L Carbon Dioxide (21-32) mmol/L Anion Gap (3-11) BUN (7-18) mg/dl Creatinine (0.6-1.2) mg/dl POC Creatinine 0.9 (0.6-1.3) mg/dl Est Cr Clr Drug Dosing Est GFR ( Amer) Est GFR (Non-Af Amer) BUN/Creatinine Ratio (10-20) Glucose (70-99) mg/dl Calcium (8.5-10.1) mg/dl Total Bilirubin (0.2-1) mg/dl Direct Bilirubin (0-0.2) mg/dl AST (15-37) U/L ALT (12-78) U/L Alkaline Phosphatase (45-117) U/L Total Protein (6.4-8.2) gm/dl Albumin (3.4-5.0) gm/dl Lipase (73-393) U/L Procalcitonin < 0.05 (0-0.5) ng/ml HCG, Qual (Negative) Specimen Hemolysis Urine Color Yellow Urine Appearance Clear (Clear) Urine pH 5.5 (4.5-7.5) Ur Specific [place] 1.009 (1.000-1.030) Urine Protein Negative (Negative) Urine Glucose (UA) Negative (Negative) Urine Ketones Negative (Negative) Urine Blood Negative (Negative) Urine Nitrite Negative (Negative) Urine Bilirubin Negative (Negative) Urine Urobilinogen Negative (Negative) Ur Leukocyte Esterase Negative (Negative) 07/05/19 07/05/19 07/05/19 Range/Units 04:10 04:10 04:10 WBC 8.19 (4.8-10.8) K/uL RBC 4.64 (4.2-5.4) M/uL Hgb 12.9 (12.0-16.0) g/dL Hct 37.3 (37-47) % MCV 80.4 (80-100) fL MCH 27.8 (25-34) pg MCHC 34.6 (32-36) g/dL RDW Std Deviation 41.1 (36.4-46.3) fL RDW Coeff of Leah 14.5 (11.5-14.5) % Plt Count 206 (130-400) K/uL MPV 11.1 H (7.4-10.4) fL Immature Gran % (Auto) 0.2 % Neut % (Auto) 61.8 % Lymph % (Auto) 31.6 % [place] % (Auto) 5.7 % Eos % (Auto) 0.6 % Baso % (Auto) 0.1 % Immature Gran # (Auto) 0.02 (0.00-0.02) K/uL Neut # (Auto) 5.05 (1.4-6.5) K/uL Lymph # (Auto) 2.59 (1.2-3.4) K/uL [place] # (Auto) 0.47 (0.11-0.59) K/uL Eos # (Auto) 0.05 (0-0.5) K/uL Baso # (Auto) 0.01 (0-0.2) K/uL Sodium 139 (136-145) mmol/L Potassium 4.0 (3.5-5.1) mmol/L Chloride 111 H (98-107) mmol/L Carbon Dioxide 19 L (21-32) mmol/L Anion Gap 9.0 (3-11) BUN 6 L (7-18) mg/dl Creatinine 0.76 (0.6-1.2) mg/dl POC Creatinine (0.6-1.3) mg/dl Est Cr Clr Drug Dosing Not Reportable Est GFR ( Amer) 130.0 Est GFR (Non-Af Amer) 112.1 BUN/Creatinine Ratio 7.5 L (10-20) Glucose 88 (70-99) mg/dl Calcium 8.7 (8.5-10.1) mg/dl Total Bilirubin 0.3 (0.2-1) mg/dl Direct Bilirubin (0-0.2) mg/dl AST 19 (15-37) U/L ALT 30 (12-78) U/L Alkaline Phosphatase 98 (45-117) U/L Total Protein 7.0 (6.4-8.2) gm/dl Albumin 3.6 (3.4-5.0) gm/dl Lipase 78 (73-393) U/L Procalcitonin (0-0.5) ng/ml HCG, Qual Negative (Negative) Specimen Hemolysis Urine Color Urine Appearance (Clear) Urine pH (4.5-7.5) Ur Specific [place] (1.000-1.030) Urine Protein (Negative) Urine Glucose (UA) (Negative) Urine Ketones (Negative) Urine Blood (Negative) Urine Nitrite (Negative) Urine Bilirubin (Negative) Urine Urobilinogen (Negative) Ur Leukocyte Esterase (Negative) Code Status & VTE Plan VTE Prophylaxis Plan VTE Prophylaxis will be ordered: Yes Supervising Physician Co-Signing Physician Notes Patient was seen and examined by me personally. I performed a brief history and physical exam. I reviewed the chart, the orders and discussed the plan in detail with Suze PALMER . I read this document and agree with its contents to entirety. Patient will be admitted. Will have patient be evaluaated by schedule analyst as this does not appear to be a surgical problem nor a GI problem given her clinical presentation. Will continue pain medications. PG Care Time/CCT Total # of Minutes Spent Total Time Spent with Patient: Total time spent is greater than 50% in coordination of care (as documented) at patient's floor/unit and/or counseling patient: Coding Level of Care Code 74139 OBS Care - Level 3 Diagnoses Pelvic pain R10.2 Ovarian cyst N83.209 Ovarian cyst rupture N83.209 Endometriosis N80.9 Gastroparesis K31.84 Hypothyroidism E03.9 Celiac disease K90.0 Iron deficiency anemia D50.9 GERD (gastroesophageal reflux disease) K21.9 History of Clostridium difficile colitis Z86.19 Uses control Z78.9 DVT prophylaxis Z29.9
[2019-07-05] MEDS ORDERED: KETOROLAC 30 MG/ML VIAL IV PRN (16:07)
[2019-07-05] MEDS ORDERED: ACETAMINOPHEN 1,000 MG/100 ML VIAL IV PRN (16:08)
[2019-07-05] MEDS ORDERED: JUNEL FE CONTRACEPTIVE PO SCH (20:00)
--- NOTE | 2019-07-05 20:31 | OB/GYN Consultation ---
Date of Consultation July 05, 2019 Assessment & Plan (1) Left lower quadrant pain: with evidence of free fluid in the pelvis and left small ovarian cyst, I suspect her pain was from this cyst that was leaking fluid. I suspect she is not absorbing her control pill well because of the frequent loose stools and there fore was able to ovulate this cycle. the timing of her pain coincides with midcycle. She was told she may have endometriosis but has not been scoped to confirm this diagnosis. 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 If she continues to require narcotics or IV pain meds over night, I would recommend repeating the ultrasound in the morning of 07/06. As of this report , it does not appear that she has had any more pain medications since the Dilaudid this morning at 9:30 am. If this was a leaking ovarian cyst, the pain should subside over the next few days. Because this looks like she ovulated while on a higher dose BCP, I recommend she switch to a different control that would bypass the GI tract and allow for more consistent absorption. Two options would be Xulane patches or Nuvaring which is inserted vaginally for 3 weeks then removed for 1 week before inserting a new ring. Mariella would like to try the Xulane patches at the start of her next cycle to see if it gives better control of dysmenorrhea and pain. 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 Mariella & her mother are agreeable to this plan. (2) Ovarian cyst: History of Present Illness Attending Physician: Ji Mcintyre This patient is a 23 yo white female with about a 2 day history lower abdominal pain mostly left sided that got progressively worse last night which brought her to the ER for evaluation. She has a history of gastroparesis, hypothyroidism, & Celiac's disease which is well controlled with gluten free diet however she has been having 4-6 episodes of very loose stools that can be bloody at times. She recently had a colonoscopy which was reported as normal findings with biopsies pending.She follows with a GI clinic at [place] for her Celiac's disease & ongoing diarrhea. She has been seen in our clinic for pelvic pain in the past as well as for dyspareunia. She reported pain with BM's as well. Her PCP in [place] suggested she may have endometriosis but she has not been scoped or tried on anything besides BCP's for her pain. A pelvic ultrasound in 2017 showed a normal pelvis with no evidence ovarian cysts. Her periods were heavy & very crampy on Astrid control pills and she was switched to Junel which she has been taking since 2018. She is consistent with taking her pills and has not taken any late. Last menses was 1 week ago & reported as light , lasting only 2 days with moderate cramping which is her normal period on this control pill. No breakthrough bleeding. She was seen in February, with ongoing pelvic pain especially left sided with intercourse. STD testing has been negative. She was to have an ultrasound scheduled but she never had this done. She denies any fever or chills, unusual vaginal discharge, or urinary symptoms. As part of her workup for the pelvic pain in the ER, she had an ultrasound which shows bilateral ovarian cysts. The right ovarian cyst is about 1 cm and mildly complex, the left ovary has a 3cm simple cyst and a mildly complex 2 cm cyst behind the ovary. There is a mild to moderate amount of free fluid in the pelvis. Currently Mariella is sleepy from the pain med she had at 9:30 in the AM , the time of this consult was 3 pm and she was starting to have an increase in her pain again. She was also having some nausea but attributed this to not having had anything to eat or drink since her arrival in the ERand she admits to feeling hungry now. HCG is negative and WBC count is normal. Her mother commented that Mariella has been anemic in the past & was to get an iron infusion possibly during her hospital stay. Allergies Allergy/AdvReac Type Severity Reaction Status Date / Time gluten Allergy Severe celiac's Verified 07/05/19 04:08 disease wheat Allergy Severe celiac's Verified 07/05/19 04:08 disease Penicillins Allergy Intermediate Hives Verified 07/05/19 04:08 Home Medications Home Medications Medication Instructions Recorded Confirmed Type esomeprazole magnesium 40 mg 40 mg PO QAM cap 01/17/19 07/05/19 History capsule,delayed release cholecalciferol (vitamin D3) 1,000 unit PO QAM 03/16/19 07/05/19 History [Vitamin D3] ferrous sulfate [Iron (ferrous 325 mg PO QAM 03/16/19 07/05/19 History sulfate)] fluticasone 250 mcg-salmeterol 50 1 puffs INH BID 03/16/19 07/05/19 History mcg/dose blistr powdr for inhalation levothyroxine 88 mcg PO QAM 03/16/19 07/05/19 History norethindrone 1.5 mg-ethinyl 1 tab PO DAILY #28 tab 05/08/19 07/05/19 Rx estradiol 30 mcg(21)/iron 75 mg(7) tablet clindamycin phosphate 1 % lotion 1 appln TOP BID #60 ml 06/30/19 07/05/19 Rx fluocinonide 0.05 % topical 1 appln TOP BID #60 ml 06/30/19 07/05/19 Rx solution ketoconazole 2 % shampoo 1 appln TOP ONCE #120 ml 06/30/19 07/05/19 Rx Patient History Medical History ADHD (attention deficit hyperactivity disorder) (Acute) Anemia Asthma inhaler daily Celiac disease Endometriosis Gastroparesis History of Clostridium difficile colitis Hypothyroidism IBS (irritable bowel syndrome) (Acute) IBS (irritable bowel syndrome) Migraine Surgical History H/O colonoscopy History of esophagogastroduodenoscopy (EGD) History of repair of left rotator cuff History of tonsillectomy and adenoidectomy S/P cholecystectomy S/P wisdom tooth extraction Family History Grandmother (Paternal) Colorectal cancer Mother Hypothyroid BCC (basal cell carcinoma of skin) Father Asthma Other No family history of adverse response to anesthesia Social History Preferred Language: Chilean Communication Ability: Effective Emergency Technician Required: No Beliefs That Will Affect Care: None Current Living Situation: Other Current Living Situation Comment: Roommate Other Information That Helps Us Care for You: No Feels Safe at Home: Yes Safety Concerns: Feels Safe At This Time Smoking Status: Never smoker Second Hand Exposure: No ; Hx Alcohol Use: Yes Alcohol type: beer and wine Hx Substance Use: No Review of Systems Review of Systems: All systems reviewed & are unremarkable except as noted in HPI & below Physical Exam Constitutional: WD/WN, vitals as above drowsy and is trying hard to focus but can answer questions without a problem Gastrointestinal (Abdomen): Percussion/Palpation: + abdomen tender (moderate tenderness to palpation) and abdomen soft; no guarding Psychiatric: A+Ox3, euthymic affect Results & Data Vital Signs (Past 12 Hours) Vital Signs Temp Pulse Resp BP Pulse Ox 07/05/19 15:30 98.4 F 62 16 144/69 H 97 07/05/19 12:19 72 16 116/73 95 07/05/19 11:50 97.9 F 72 16 118/78 95 07/05/19 11:30 73 18 115/70 96 07/05/19 09:46 98.4 F 95 H 18 125/67 94 07/05/19 09:15 95 H 18 123/65 96 PG Care Time/CCT Total # of Minutes Spent Total Time Spent with Patient: Total time spent is greater than 50% in coordination of care (as documented) at patient's floor/unit and/or counseling patient: Coding Level of Care Code 79027 Inpt Consult Level 3 Diagnoses Left lower quadrant pain R10.32 Ovarian cyst N83.209
[2019-07-05] MEDS ORDERED: ERYTHROMYCIN 250 MG TABEC PO SCH (21:00)
[2019-07-06] MEDS: PROCHLORPERAZINE 10 MG in SYRINGE 8 ML IV PRN (00:10)
[2019-07-06] MEDS: LEVOTHYROXINE SODIUM 88 MCG TABLET PO SCH (05:47)
[2019-07-06 05:52] LABS: Hematocrit (blood only) 36.5 % (37-47); Hemoglobin 12.4 g/dL (12.0-16.0); Mean Corpuscular Hemoglobin 27.8 pg (25-34); Mean Corpuscular Volume 81.8 fL (80-100); Mean Platelet Volume 11.4 fL (7.4-10.4); Platelet Count 205 K/uL (130-400); RDW Coefficient of Variation 14.3 % (11.5-14.5); RDW Standard Deviation 41.9 fL (36.4-46.3); Red Blood Count 4.46 M/uL (4.2-5.4); White Blood Count 5.35 K/uL (4.8-10.8)
[2019-07-06 06:28] LABS: Calcium 8.4 mg/dl (8.5-10.1); Creatinine Clr Calc Pharmacy 162.6 ml/min; Est GFR (African American) 149.4; Est GFR (Non-African American) 128.9; Potassium 3.6 mmol/L (3.5-5.1)
--- NOTE | 2019-07-06 08:19 | Gynecologic Progress Note ---
Date of Service July 06, 2019 Assessment & Plan (1) Ovarian cyst rupture: resolving pain. has not required dilaudid for 24 hours. will switch to Xulane patch to start with next control cycle will send script to pharmacy for her. follow up with me in 2-3 months in [facility] staff physician office. 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 no nausea or vomiting . tolerating regular diet. had one dose of IV toradol at midnight. none since. was able to ambulate to the bathroom & void without difficulty Review of Systems Review of Systems: All systems reviewed & are unremarkable except as noted in HPI & below Physical Exam Constitutional: WD/WN, vitals as above Gastrointestinal (Abdomen): normal bowel sounds, soft, nontender, no hepatosplenomegaly Percussion/Palpation: + abdomen tender (very mild tenderness with deep palpation-RLQ) and abdomen soft; no guarding Results & Data Vital Signs (Past 12 Hours) Vital Signs Temp Pulse Resp BP Pulse Ox 07/06/19 07:31 93/54 L 07/06/19 07:22 98.2 F 60 16 80/43 L 97 07/05/19 23:03 98.2 F 62 14 126/77 97 PG Care Time/CCT Total # of Minutes Spent Total Time Spent with Patient: Total time spent is greater than 50% in coordination of care (as documented) at patient's floor/unit and/or counseling patient: Coding Level of Care Code 22473 Subseq Hosp Care Lvl 2 Diagnoses Ovarian cyst rupture N83.209
[2019-07-06] MEDS: PANTOprazole 40 MG TAB PO SCH (09:02)
[2019-07-06] MEDS: ERYTHROMYCIN ETHYLSUCC SUSP 200 MG/5 ML 100 ML BTL PO SCH (10:00)
--- NOTE | 2019-07-06 14:01 | Discharge Summary ---
Date of Service July 06, 2019 Admission HPI Per Admitting Provider Ms. Rivera is a 23 year old female with past medical history of hypothyroidism, GERD, ADHD, asthma, endometriosis, gastroparesis, migraines, celiac disease and C. diff colitis who presented with lower abdomen/pelvic pain. Pt. had a colonoscopy at [facility] on Wednesday of last week. She developed pelvic discomfort on Wednesday, rated as a 3/10 in the lower abdomen bilaterally. Pelvic pain was intermittent but increased in intensity this morning around 2:30 am. Pain was described as "stabbing", rated as a 8/10 without pain meds. Was worse in the RLQ>LLQ. She received multiple doses of IV narcotics in the ER; pain improved to 4-5/10 on pain scale. Has associated nausea, denies vomiting. Has been having bloody BMs over last 6 months -- led to colonoscopy on Wednesday. Denies fever/chills, SOB, chest pain, URI symptoms, dysuria or hematuria. ER course: She received Fentanyl and Dilaudid IV with mild improvement in pain. Will be admitted for further evaluation of pelvic pain. Admission Exam Per Admitting Provider General: Resting comfortably HEENT: NC/AT; PERRLA with EOMI; [place] conjunctiva, MMM. No erythema of posterior pharynx Neck: Supple and nontender Cardiac: RRR Lungs: CTA bilaterally Abdomen: Bowel normoactive X 4; TTP in pelvic region bilaterally. Rectal: Deferred : Deferred Extremities: Warm. No edema present Neuro: No focal weakness Skin: No rash Principal Diagnosis Ovarian Cysts, Abdominal Pain Discharge Exam General: Resting comfortably HEENT: NC/AT; PERRLA with EOMI; [place] conjunctiva, MMM. No erythema of posterior pharynx Neck: Supple and nontender Cardiac: RRR Lungs: CTA bilaterally Abdomen: Bowel normoactive X 4; TTP in pelvic region bilaterally, R>L. Extremities: Warm. No edema present Neuro: No focal weakness Skin: No rash Discharge Data Allergies Allergy/AdvReac Type Severity Reaction Status Date / Time gluten Allergy Severe celiac's Verified 07/05/19 04:08 disease wheat Allergy Severe celiac's Verified 07/05/19 04:08 disease Penicillins Allergy Intermediate Hives Verified 07/05/19 04:08 Consultations 07/05/19 08:24 ED Decision to Admit Stat 07/05/19 09:44 Consult Gastroenterology Routine 07/05/19 10:59 Consult Gynecology Routine 07/05/19 11:05 Consult General Surgery Routine Ordered Studies 07/05/19 04:21 CT abd pelvis IV con only Urgent 07/05/19 06:30 US pelvic complete Stat 07/05/19 06:31 US transvaginal Stat Hospital Course (1) Pelvic pain: Likely related to ovarian cysts with possible rupture. Imaging showed bilateral ovarian cysts with moderate free fluid within the pelvic cul-de-sac. U/a negative; Lipase level WNL. General surgery consulted, does not require intervention. GI consulted, is not likely related to underlying GI abnormality. Gynecology consulted, appreciate input. Tylenol prn mild pain; Dilaudid IV prn severe pain -- cannot take Oxycodone or Ibuprofen, leads to hematemesis. Pain was well controlled with Toradol IV. Did not require ongoing doses of Dilaudid IV. IV fluids at 80 cc/hr; gluten free diet. Abd pain improved and pt. was stable for discharge to home on 07/06/19. Will convert to control patch following current cycle and f/u with Dr. Arce in 2-3 months. (2) Ovarian cyst: As noted above. (3) Ovarian cyst rupture: See above. (4) Endometriosis: Pt. reports h/o endometriosis. Gynecology consulted. Last menstrual period was last week. (5) Gastroparesis: Continued home erythromycin 250 mg TID Mon-Fri. (6) Hypothyroidism: Continued Synthroid 88 mcg daily. (7) Celiac disease: H/o; follows with [facility]. Consulted as inpatient, symptoms are not likely related to underlying celiac disease. Continued gluten free diet. (8) Iron deficiency anemia: On ferrous sulfate at home but scheduled to receive first IV iron infusion at cancer center on day of admission. Received Venofer 300 mg IV x 1 dose. F/u to discuss future transfusions. (9) GERD (gastroesophageal reflux disease): PPI daily. (10) History of Clostridium difficile colitis: H/o; no evidence of acute infection at this time. (11) Uses control: Continued home control as prescribed. (12) DVT prophylaxis: SCDs; held pharmacologic ppx, encourage ambulation. Discharged to home on 07/06/19. Total Time Total Time Spent Total Time Spent (In Minutes): >30 minutes Total Time Includes: Examination of the Patient, Discharge Planning, Medication Reconciliation, Communication With Other Providers and Other Discharge Plan Discharge Items Patient Disposition: Home - Self-Care Reason For Visit: ABDOMINAL PAIN Discharge Diagnosis: Abdominal Pain, Ovarian Cysts Condition on Discharge: Good Goals: You have been hospitalized for an acute medical problem. During your stay at [facility], we have made an effort to correct the problem that brought you to the hospital while keeping you as comfortable as possible. Medications were used to bring your condition under control and your discharge instructions will include directions for any medications you should take after leaving the hospital. Please make sure you see your Primary Care Provider as part of your follow up plan. Activity: As commented below Exercise/Sports: Gradually increase as tolerated Non-emergency contact: Primary Care Provider Call non-emergency contact if: you have any medication questions, your symptoms worsen, your pain is not controlled, your pain is worsening, your pain is unusual for you, your pain is concerning for you and you have a fever Follow-up/Referrals: PCP,NO [Primary Care Provider] - Diet: Regular Addtl Attending Provider Instructions: 1. Abdominal pain likely related to ovarian cysts * Please continue Tylenol 650 mg every 6 hours as needed for pain control at home. * Please discontinue oral control pill and start patch with your next cycle. * Please follow up with gynecology in 2-3 months. 2. Iron Deficiency Anemia * Please follow up for iron infusions in the cancer center as scheduled. Pending Studies at Discharge: No Stand-Alone Forms: My [facility], Work/School Release (Inpt) Medications and DC Order Prescriptions: New erythromycin 250 mg tablet,delayed release (DR/EC) 250 mg PO TID Qty: 1 RF: 0 acetaminophen [Mapap (acetaminophen)] 325 mg Tablet 650 mg PO Q6H PRN (Reason: pain) Qty: 1 RF: 0 Continued Xulane 150-35 mcg/24 hr patch weekly 1 patch TD Q7D Qty: 3 RF: 3 Xulane 150-35 mcg/24 hr patch weekly 1 patch TD Q7D Qty: 3 RF: 1 esomeprazole magnesium [Nexium] 40 mg capsule,delayed release(DR/EC) 40 mg PO QAM RF: 0 fluticasone propion-salmeterol [Wixela Inhub] 250-50 mcg/dose blister with device 1 puffs INH BID RF: 0 clindamycin phosphate 1 % lotion 1 appln TOP BID Qty: 60 RF: 1 ketoconazole 2 % shampoo 1 appln TOP ONCE Qty: 120 RF: 2 levothyroxine 88 mcg tablet 88 mcg PO QAM RF: 0 ferrous sulfate [Iron (ferrous sulfate)] 325 mg (65 mg iron) Tablet 325 mg PO QAM RF: 0 cholecalciferol (vitamin D3) [Vitamin D3] 1,000 unit Capsule 1,000 unit PO QAM RF: 0 Discontinued Junel FE 1.5/30 (28) 1.5 mg-30 mcg (21)/75 mg (7) tablet 1 tab PO DAILY Qty: 28 RF: 9 No Action clobetasol 0.05 % solution 1 appln TOP DAILY Qty: 50 RF: 0 Discharge Orders: Discharge Order (Routine); Ordered 07/06/19 Ordered By: Suze Jones Admission Data Admit Date/Time: 07/05/19 08:56 Attending Provider: Ji Mcintyre Admit Provider: Ji Mcintyre Primary Care Provider: PCP,NO Other Providers: Jenny Mello ; Mehran Latham ; Neisha Casas ; Connor Sauceda Other Interventions: Discharge Summary Assessment (RN) Last Done: 07/06/19 10:30 DC Date/Time DO NOT enter until pt leaves facility: 07/06/19 12:10 Supervising Physician Co-Signing Physician Notes Patient was seen and examined by me personally. I performed a brief history and physical exam. I reviewed the chart, the orders and discussed the discharge plan in detail with Suze PALMER . I read this discharge summary and agree with its contents to entirety. Pelvic pain appears to be due to patient's malabsorbing her oral control medications. Appreciate input from desk operator. Switch to transdermal medications. Coding Level of Care Code D/C Day Management >30 mins Diagnoses Pelvic pain R10.2 Ovarian cyst N83.209 Ovarian cyst rupture N83.209 Endometriosis N80.9 Gastroparesis K31.84 Hypothyroidism E03.9 Celiac disease K90.0 Iron deficiency anemia D50.9 GERD (gastroesophageal reflux disease) K21.9 History of Clostridium difficile colitis Z86.19 Uses control Z78.9 DVT prophylaxis Z29.9
== END 2019-07-06 12:10 | disposition home or self-care (01) ==
LOC: 3W 03:35 → ED 03:35 → 3W 09:24

== ENCOUNTER 2025-04-15 12:56 | Observation (INO) ==
--- NOTE | 2025-04-15 13:17 | Emergency Department Note ---
History of Present Illness General Chief complaint: Abdominal Pain Stated complaint: ABD PAIN, CRAMPING Time Seen by Provider: 04/15/25 13:07 History of Present Illness This is a 29-year-old female that presents to the emergency department via private vehicle with complaints of "abdominal pain, cramping". The patient notes that around 5 AM she was awoken from sleep by intense right upper quadrant abdominal pain/right flank pain. No trauma. No injury. She does have associated chills and vomiting. She also notes diarrhea. No blood in the vomit or diarrhea. She does not history of cholecystectomy as well as exploratory abdominal surgery secondary to endometriosis and endometriosis was diagnosed. She has no history of celiac disease, Crohn's disease, Abby as well as PCOS. Currently on Zoloft as well as levothyroxine. She is no longer on any meds for the Crohn's disease. She does have an IUD. LMP 3 weeks ago. She denies any concern or chance of . No history of similar symptoms today. No chest pain. No shortness of breath. Home Medications Medication Instructions Recorded Confirmed Type esomeprazole magnesium 40 mg 40 mg PO QAM 01/17/19 01/08/21 History capsule,delayed release (Nexium) acetaminophen 325 mg tablet (Mapap 650 mg (2 x 325 mg) PO Q6H PRN 07/06/19 01/08/21 Rx (acetaminophen)) pain #1 tab citalopram [Celexa] PO 03/05/20 01/08/21 History dicyclomine 10 mg capsule 10 mg PO BID PRN 03/05/20 01/08/21 History ondansetron HCl [Zofran] PO PRN 03/05/20 01/08/21 History levothyroxine 88 mcg tablet 88 mcg PO QAM #30 tabs 08/08/20 01/08/21 Rx Allergies Allergy/AdvReac Type Severity Reaction Status Date / Time gluten Allergy Severe celiac's Verified 01/08/21 11:36 disease wheat Allergy Severe celiac's Verified 01/08/21 11:36 disease Penicillins Allergy Intermediate Hives Verified 01/08/21 11:36 Past Med/Surg History Problem List (Updated 04/15/25 @ 17:17 by Anthony Grimaldo PA-C) Intractable abdominal pain (Acute) Abdominal pain, acute, right upper quadrant (Acute) Hypothyroidism Uses control History of Clostridium difficile colitis GERD (gastroesophageal reflux disease) DVT prophylaxis Endometriosis Iron deficiency anemia Ovarian cyst Gastroparesis Ovarian cyst rupture (Acute) IBS (irritable bowel syndrome) (Acute) ADHD (attention deficit hyperactivity disorder) (Acute) Crohn's disease Weight gain (Acute) Pelvic pain (Acute) Nausea (Acute) Low blood sugar (Acute) Loose stools (Acute) Left lower quadrant pain (Acute) Hypothyroidism (Acute) Fatigue (Acute) Encounter for routine gynecological examination (Acute) Celiac disease (Acute) Breakthrough bleeding on OCPs (Acute) Abdominal pain (Acute) Medical History (Updated 04/15/25 @ 17:17 by Anthony Grimaldo PA-C) Anemia Migraine Asthma inhaler daily Hypothyroidism IBS (irritable bowel syndrome) Celiac disease Surgical History History of repair of left rotator cuff History of tonsillectomy and adenoidectomy H/O colonoscopy History of esophagogastroduodenoscopy (EGD) S/P wisdom tooth extraction S/P cholecystectomy Family History Grandmother (Paternal) Colorectal cancer Mother Hypothyroid BCC (basal cell carcinoma of skin) Father Asthma Other No family history of adverse response to anesthesia Social History (Updated 03/05/20 @ 11:57 by Suzie Sarabia) Smoking Status: Never smoker Second Hand Exposure: No; Do You Dip or Chew Tobacco: No; Hx Alcohol Use: Yes Alcohol type: beer and wine Hx Substance Use: No Preferred Language: Turkish Communication Ability: Effective Knockup Worker Required: No Beliefs That Will Affect Care: None Current Living Situation: Other Current Living Situation Comment: Roommate Feels Safe at Home: Yes Assistive Devices: None Review of Systems A total of 10 systems reviewed and were otherwise negative Physical Exam Vital Signs Vital Signs - 24 hr 04/15/25 13:05 04/15/25 13:15 04/15/25 13:30 Temperature 36.5 C Temperature Source Temporal Artery Scan Pulse Rate 119 H Pulse Rate [Right Finger] Pulse Rate from SpO2 Sensor Respiratory Rate 20 Blood Pressure 122/54 L 112/79 Blood Pressure [Right Arm] Blood Pressure Mean 76 88 Blood Pressure Mean [Right Arm] Pulse Oximetry 97 Oxygen Delivery Method Room Air Sepsis Recent Fever Within 48 Hours No Sepsis New/Unexplained Change in Mental Status N/A Sepsis Action Taken by Nursing No Action Required 04/15/25 13:33 04/15/25 13:34 04/15/25 14:00 Temperature Temperature Source Pulse Rate 84 84 91 H Pulse Rate [Right Finger] Pulse Rate from SpO2 Sensor 86 89 Respiratory Rate 19 14 Blood Pressure 112/79 128/71 Blood Pressure [Right Arm] Blood Pressure Mean 90 90 Blood Pressure Mean [Right Arm] Pulse Oximetry 96 97 Oxygen Delivery Method Room Air Sepsis Recent Fever Within 48 Hours Sepsis New/Unexplained Change in Mental Status Sepsis Action Taken by Nursing 04/15/25 14:30 04/15/25 15:34 Temperature Temperature Source Pulse Rate 85 Pulse Rate [Right Finger] 81 Pulse Rate from SpO2 Sensor 84 Respiratory Rate 15 16 Blood Pressure 128/66 Blood Pressure [Right Arm] 132/68 Blood Pressure Mean 86 Blood Pressure Mean [Right Arm] 89 Pulse Oximetry 96 99 Oxygen Delivery Method Room Air Room Air Sepsis Recent Fever Within 48 Hours Sepsis New/Unexplained Change in Mental Status Sepsis Action Taken by Nursing VITAL SIGNS - Vital signs and nursing notes were reviewed. Stable and afebrile. GENERAL - 29-year-old female appearing her stated age who is in no acute distress but appears to be in pain. Communicates well with provider and answers questions appropriately. SKIN - Without rashes. No meningeal or petechial rash. HEAD - NC/AT. EYES - PERRL with EOMI bilaterally. Sclera anicteric. EARS - No deformities of external structures noted on gross examination bilaterally. NOSE - Midline and without cyanosis. No epistaxis or purulent drainage noted. MOUTH/OROPHARYNX - Without perioral cyanosis. NECK - Neck with FROM. No nuchal rigidity. LUNGS - CTA CARDIAC - RRR ABDOMEN - Abdominal contour normal without pulsations or visible masses. BS normoactive all four quadrants. There is right sided abdominal tenderness to palpation. No palpable masses, hepatosplenomegaly, or ascites noted. No guarding. No rigidity EXTREMITIES - No clubbing or peripheral cyanosis. +5/5 strength noted in UE/LE bilaterally. NEUROLOGIC - Cranial nerves II through XII grossly intact. PSYCH -alert, oriented and pleasant on examination Course Administered Medications Discontinued Medications Hydromorphone HCl (Hydromorphone Inj 0.5 Mg/0.5 Ml Syr) 0.5 mg IV NOW STA Stop: 04/15/25 13:17 Last Admin: 04/15/25 13:23 Dose: 0.5 mg Documented By: YANNA Hydromorphone HCl (Hydromorphone Inj 0.5 Mg/0.5 Ml Syr) 0.5 mg IV NOW STA Stop: 04/15/25 14:11 Last Admin: 04/15/25 14:42 Dose: 0.5 mg Documented By: cory Hydromorphone HCl (Hydromorphone Inj 0.5 Mg/0.5 Ml Syr) 0.5 mg IV NOW STA Stop: 04/15/25 15:26 Last Admin: 04/15/25 15:33 Dose: 0.5 mg Documented By: JEFF Sodium Chloride (Nss) 1,000 mls @ 999 mls/hr IV .Q1H1M ONE Stop: 04/15/25 14:16 Last Infusion: 04/15/25 14:39 Dose: Infused Documented By: Admin: 04/15/25 13:28 Dose: 999 mls/hr Documented By: YANNA Ioversol (Optiray 320 100ml) 94 ml IV ONCE ONE Stop: 04/15/25 13:50 Last Admin: 04/15/25 13:49 Dose: 94 ml Documented By: QUENTIN Ondansetron HCl (Ondansetron Inj 2 Mg/Ml 2 Ml Vial) 4 mg IV NOW STA Stop: 04/15/25 13:17 Last Admin: 04/15/25 13:25 Dose: 4 mg Documented By: YANNA Medical Decision Making Laboratory Data 04/15/25 13:25 04/15/25 13:25 Lab Results 04/15/25 04/15/25 04/15/25 Range/Units 13:25 13:37 16:22 WBC 9.89 (4.8-10.8) K/ul RBC 4.85 (4.20-5.40) M/uL Hgb 15.9 (12.0-16.0) g/dl POC Hgb 15.0 (12.0-16.0) g/dl Hct 42.4 (37.0-47.0) % POC Hct 44 (37-47) % MCV 87.4 (80.0-100.0) fL MCH 32.8 (25.0-34.0) pg MCHC 37.5 H (32.0-36.0) g/dL RDW Std Deviation 38.3 (36.4-46.3) fL RDW Coeff of Leah 11.9 (11.5-14.5) % Plt Count 182 (130-400) K/uL MPV 11.2 (9.4-12.4) fL Neutrophils % (Manual) 91 % Lymphocytes % (Manual) 4 % Monocytes % (Manual) 5 % Neutrophils # (Manual) 9.00 H (1.40-6.50) K/uL Total Absolute Neuts 9.00 H (1.4-6.5) K/uL Lymphocytes # (Manual) 0.40 L (1.2-3.4) K/uL Total Abs Lymphocytes 0.40 L (1.2-3.4) K/uL Monocytes # (Manual) 0.49 (0.11-0.59) K/uL Toxic Vacuolation 1+ POC Sodium 138 (135-144) mmol/L Sodium 138 (136-145) mmol/L POC Potassium 3.4 (3.3-5.0) mmol/L Potassium 3.5 (3.5-5.1) mmol/L POC Chloride 105 (101-112) mmol/L Chloride 106 (98-107) mmol/L Carbon Dioxide 22 (21-32) mmol/L POC Total CO2 19 L (24-31) mmol/L Anion Gap 10 (3-11) POC Anion Gap 19.0 (16-25) mmol/L POC BUN 11 (7-18) mg/dl BUN 12 (6-23) mg/dl Creatinine 0.61 (0.6-1.2) mg/dl POC Creatinine 0.7 (0.6-1.3) mg/dl Est Cr Clr Drug Dosing 161.1 ml/min eGFR 125.59 BUN/Creatinine Ratio 19.7 (10-20) Glucose 105 H (70-99(Fasting)) mg/dl POC Glucose (other) 105 H (70-99) mg/dl Lactate 1.8 (0.4-2.0) mmol/L Calcium 9.2 (8.6-10.3) mg/dl POC Ioniz Calcium Jarad 1.12 (1.12-1.32) mmol/l Total Bilirubin 1.4 H (0.2-1.0) mg/dl AST 18 (13-39) U/L ALT 29 (7-52) U/L Alkaline Phosphatase 76 (34-104) U/L Total Protein 7.1 (6.0-8.3) gm/dl Albumin 4.9 (3.4-5.0) gm/dl Globulin 2.2 L (2.5-4.0) gm/dl Albumin/Globulin Ratio 2.2 H (0.9-2) Lipase 10 L (11-82) U/L Procalcitonin 0.04 (0-0.5) ng/ml HCG, Qual Negative (Negative) Imaging Data Radiologist's Impression: Abdomen/Pelvis CT 04/15/25 13:15 EXAMINATION: CT of the abdomen and pelvis performed after the administration of IV contrast TECHNIQUE: Helical CT images from the lung bases through the symphysis pubis were obtained with contrast. Coronal and sagittal reformatted images were generated at a workstation for further assessment. Dose reduction techniques were achieved by using automatic exposure control and/or adjustment of mA and/or kV according to patient size and/or use of iterative reconstruction technique. COMPARISON: None HISTORY: Abdominal pain FINDINGS: Lower chest: No consolidation. No pleural effusion or pneumothorax. Liver: No suspicious liver lesions. Portal veins appear patent. Gallbladder: Cholecystectomy Spleen: Normal size. Pancreas: No suspicious pancreatic lesions. The pancreatic duct is not dilated. Adrenal glands: No adrenal nodules. Kidneys: No hydronephrosis or obstructing renal stones. Bladder / Pelvic organs: Unremarkable. IUD. Bowel: No bowel obstruction. No abnormal bowel wall thickening. The appendix is unremarkable. Lymph nodes: No retroperitoneal, mesenteric, or pelvic lymphadenopathy. Peritoneum / Retroperitoneum: No free fluid or air within the abdomen. Vessels: No infrarenal aortic aneurysm. Bones and soft tissues: No suspicious lesion in the bones. IMPRESSION: No acute finding in the abdomen or pelvis Electronically signed by Cory Cullen 04-15-2025 2:38 PM MDM Narrative Patient was seen and evaluated as above in room B3b. Review was performed of nursing notes and vital signs. I did review pertinent previous visits and patient history. After obtaining a thorough history and physical examination the above work up was performed. Patient presents to us today for evaluation of right upper quadrant abdominal pain. This was rather abrupt onset occurring around 5 AM today. She has had abdominal pain before but never like this. My assessment she is tender in the right upper quadrant area. She is tearful on examination. The pain is quite severe. Patient was ordered IV analgesics, IV antiemetics and IV fluids. There is no leukocytosis or concerning anemia. I will note that there is toxic vacuolation noted on the CBC. I did add on Pro-Param, lactate and blood cultures. There is no leukocytosis or concerning anemia. Mild hyperglycemia 105. Mild hyperbilirubinemia at 1.4. This is elevated compared to previous. There is normal lipase. Procalcitonin within normal range. hCG negative. Lactate returned negative as well. A CT scan of the abdomen/pelvis was ordered and is as above. This was essentially negative per radiologist. I did add on a pelvic ultrasound to assess ovary flow to ensure this is not ovarian torsion with referred pain to the right upper quadrant. I do believe that further evaluation and management inpatient setting is warranted. She has received multiple analgesics here with continued return of her pain. Case discussed with the hospitalist service. Ultrasound pending at this time. Please refer to further documentation regarding her stay. In the evaluation and treatment of this patient the following differential diagnoses were entertained: Pancreatitis, biliary issue, gastritis, colitis, perforation, abscess, UTI, ovarian torsion, among others Impression & Plan Abdominal pain, acute, right upper quadrant, Intractable abdominal pain Discharge Plan Visit Data Chief Complaint: Abdominal Pain Stated Complaint: ABD PAIN, CRAMPING ED Provider: Yobani Steel ED Midlevel Provider: Anthony Grimaldo Discharge Problem: Abdominal pain, acute, right upper quadrant, Intractable abdominal pain Patient Disposition: Admitted As Inpatient Condition: Good Forms Stand Alone Forms: My [facility] [email or web address] Prescriptions Prescriptions: No Action levothyroxine 88 mcg tablet 88 mcg PO QAM Qty: 30 5RF Rx Instructions: 88 mcg PO TAKE ON AN EMPTY STOMACH WITH A FULL GLASS OF WATER, WAIT 30 MINUTES TO EAT, DRINK, OR TAKE MEDICATIONS; esomeprazole magnesium [Nexium] 40 mg capsule,delayed release(DR/EC) 40 mg PO QAM dicyclomine 10 mg capsule 10 mg PO BID PRN ondansetron HCl PO PRN citalopram PO acetaminophen [Mapap (acetaminophen)] 325 mg Tablet 650 mg PO Q6H PRN (Reason: pain) Qty: 1 0RF Referrals Referrals: PCP,NO [Primary Care Provider] -
[2025-04-15] MEDS: HYDROmorphone INJ 0.5 MG/0.5 ML SYR IV STA ×3 (13:23→15:33)
[2025-04-15] MEDS: ONDANSETRON INJ 2 MG/ML 2 ML VIAL IV STA (13:25)
[2025-04-15] MEDS: SODIUM CHLORIDE 0.9% 1,000 ML IV ONE (13:28)
[2025-04-15] MEDS: OPTIRAY 320 100ml IV ONE (13:49)
[2025-04-15 14:01] LABS: Alanine Aminotransferase 29.0 U/L (7-52); Albumin Globulin Ratio 2.2 (0.9-2); Albumin Level 4.9 gm/dl (3.4-5.0); Alkaline Phosphatase 76.0 U/L (34-104); Anion Gap 10.0 (3-11); Bilirubin,Total 1.4 mg/dl (0.2-1.0); Blood Urea Nitrogen 12.0 mg/dl (6-23); Calcium 9.2 mg/dl (8.6-10.3); Carbon Dioxide 22.0 mmol/L (21-32); Chloride 106.0 mmol/L (98-107); Creatinine Clr Calc Pharmacy 161.1 ml/min; Globulin 2.2 gm/dl (2.5-4.0); Glucose 105.0 mg/dl (70-99(Fasting)); Potassium 3.5 mmol/L (3.5-5.1); Sodium 138.0 mmol/L (136-145); Total Protein 7.1 gm/dl (6.0-8.3)
[2025-04-15 14:11] LABS: Pregnancy Test, Serum Negative (Negative)
[2025-04-15 14:17] LABS: Lipase 10.0 U/L (11-82)
[2025-04-15 14:25] LABS: Hematocrit (blood only) 42.4 % (37.0-47.0); Hemoglobin 15.9 g/dl (12.0-16.0); Mean Corpuscular Hemoglobin 32.8 pg (25.0-34.0); Mean Corpuscular Volume 87.4 fL (80.0-100.0); Platelet Count 182 K/uL (130-400); RDW Standard Deviation 38.3 fL (36.4-46.3); Red Blood Count 4.85 M/uL (4.20-5.40); White Blood Count 9.89 K/ul (4.8-10.8)
[2025-04-15 14:26] LABS: Toxic Vacuolation 1+
--- NOTE | 2025-04-15 14:39 | CT Scan Report ---
EXAMINATION: CT of the abdomen and pelvis performed after the administration of IV contrast TECHNIQUE: Helical CT images from the lung bases through the symphysis pubis were obtained with contrast. Coronal and sagittal reformatted images were generated at a workstation for further assessment. Dose reduction techniques were achieved by using automatic exposure control and/or adjustment of mA and/or kV according to patient size and/or use of iterative reconstruction technique. COMPARISON: None HISTORY: Abdominal pain FINDINGS: Lower chest: No consolidation. No pleural effusion or pneumothorax. Liver: No suspicious liver lesions. Portal veins appear patent. Gallbladder: Cholecystectomy Spleen: Normal size. Pancreas: No suspicious pancreatic lesions. The pancreatic duct is not dilated. Adrenal glands: No adrenal nodules. Kidneys: No hydronephrosis or obstructing renal stones. Bladder / Pelvic organs: Unremarkable. IUD. Bowel: No bowel obstruction. No abnormal bowel wall thickening. The appendix is unremarkable. Lymph nodes: No retroperitoneal, mesenteric, or pelvic lymphadenopathy. Peritoneum / Retroperitoneum: No free fluid or air within the abdomen. Vessels: No infrarenal aortic aneurysm. Bones and soft tissues: No suspicious lesion in the bones. IMPRESSION: No acute finding in the abdomen or pelvis Electronically signed by Cory Cullen 04-15-2025 2:38 PM
[2025-04-15 15:06] LABS: ALC (manual) 0.40 K/uL (1.2-3.4); ANC (manual) 9.00 K/uL (1.4-6.5)
--- NOTE | 2025-04-15 17:07 | History & Physical Report ---
"Date of Service April 15, 2025 Assessment & Plan (1) Abdominal pain, acute, right upper quadrant: (2) Crohn's disease: (3) Hypothyroidism: Plan Mariella is a 29F with a PMHx of Hypothyroid, GERD, endometriosis, Crohn's and celiacs who presents with concerns of severe RUQ pain. #Abdominal Pain | Hx of crohns - significant RUQ pain, nausea and vomiting without clear source. s/p cholecystectomy. CT A/P without acute findings. lactate 1.8. TVUS pending. DDx includes viral gastritis, crohn flare, gluten ingestion, among others Continue IVFs until diet improves clear liquids, advance as tolerated check stool studies check UA Convert PPI to IV Blood cultures pending Pain control: prn tylenol, bentyl and IV Dilaudid #hypothyroid - continue Synthroid Dispo: obs to med/tele DVT proh: low risk, encourage ambulation History of Present Illness Chief Complaint: Abd pain Primary Care Provider: NO PCP Mariella is a 29F with a PMHx of Hypothyroid, GERD, endometriosis, Crohn's and celiacs who presents with concerns of severe RUQ pain. Pain awoke her from sleep around 0500 with nausea and vomiting. Initially was food, but now bile. No hematemesis. Vomiting has subsided. Patient also reports diarrhea. No fevers, but some chills. No sick contacts. 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 Hx of Crohns - no daily medications, no flares in a long time. Takes Bentyl very occasionally. Feels like the Dilaudid helps the pain, but still having cramping. Pain is very localized to RUQ. No back pain, no urinary symptoms. Allergies Allergy/AdvReac Type Severity Reaction Status Date / Time gluten Allergy Severe celiac's Verified 01/08/21 11:36 disease wheat Allergy Severe celiac's Verified 01/08/21 11:36 disease Penicillins Allergy Intermediate Hives Verified 01/08/21 11:36 Home Medications Medication Instructions Recorded Confirmed Type esomeprazole magnesium 40 mg 40 mg PO QAM 01/17/19 01/08/21 History capsule,delayed release (Nexium) acetaminophen 325 mg tablet (Mapap 650 mg (2 x 325 mg) PO Q6H PRN 07/06/19 01/08/21 Rx (acetaminophen)) pain #1 tab citalopram [Celexa] PO 03/05/20 01/08/21 History dicyclomine 10 mg capsule 10 mg PO BID PRN 03/05/20 01/08/21 History ondansetron HCl [Zofran] PO PRN 03/05/20 01/08/21 History levothyroxine 88 mcg tablet 88 mcg PO QAM #30 tabs 08/08/20 01/08/21 Rx Past Med/Surg History Problem List (Updated 04/15/25 @ 17:17 by Anthony Grimaldo PA-C) Intractable abdominal pain (Acute) Abdominal pain, acute, right upper quadrant (Acute) Hypothyroidism Uses control History of Clostridium difficile colitis GERD (gastroesophageal reflux disease) DVT prophylaxis Endometriosis Iron deficiency anemia Ovarian cyst Gastroparesis Ovarian cyst rupture (Acute) IBS (irritable bowel syndrome) (Acute) ADHD (attention deficit hyperactivity disorder) (Acute) Crohn's disease Weight gain (Acute) Pelvic pain (Acute) Nausea (Acute) Low blood sugar (Acute) Loose stools (Acute) Left lower quadrant pain (Acute) Hypothyroidism (Acute) Fatigue (Acute) Encounter for routine gynecological examination (Acute) Celiac disease (Acute) Breakthrough bleeding on OCPs (Acute) Abdominal pain (Acute) Medical History (Updated 04/15/25 @ 17:17 by Anthony Grimaldo PA-C) Anemia Migraine Asthma inhaler daily Hypothyroidism IBS (irritable bowel syndrome) Celiac disease Surgical History History of repair of left rotator cuff History of tonsillectomy and adenoidectomy H/O colonoscopy History of esophagogastroduodenoscopy (EGD) S/P wisdom tooth extraction S/P cholecystectomy Family History Grandmother (Paternal) Colorectal cancer Mother Hypothyroid BCC (basal cell carcinoma of skin) Father Asthma Other No family history of adverse response to anesthesia Social History (Updated 03/05/20 @ 11:57 by Suzie Sarabia) Smoking Status: Never smoker Second Hand Exposure: No; Do You Dip or Chew Tobacco: No; Hx Alcohol Use: Yes Alcohol type: beer and wine Hx Substance Use: No Preferred Language: Armenian Communication Ability: Effective Steel Roller Required: No Beliefs That Will Affect Care: None Current Living Situation: Other Current Living Situation Comment: Roommate Feels Safe at Home: Yes Assistive Devices: None Review of Systems Review of Systems: All systems reviewed & are unremarkable except as noted in Subjective Physical Exam Physical Exam: General: NAD, VS as above Resp: normal respiratory effort, lungs clear to auscultation CV: RRR, no murmur, Abd: normal bowel sounds, RUQ pain with mild guarding, otherwise soft, mild epigastric pain. No CVA tenderness Extremities: Moves all extremities, no edema Neuro: A&O x3, Skin: intact, no lesions noted Results & Data Results & Data Vital Signs (Past 12 Hours) Vital Signs Temp Pulse Pulse Resp BP BP Pulse Ox 04/15/25 15:34 81 16 132/68 99 04/15/25 14:30 85 15 128/66 96 04/15/25 14:00 91 H 14 128/71 97 04/15/25 13:34 84 04/15/25 13:33 84 19 112/79 96 04/15/25 13:30 112/79 04/15/25 13:15 04/15/25 13:05 97.7 F 119 H 20 122/54 L 97 O2 Del Method 04/15/25 15:34 Room Air 04/15/25 14:30 Room Air 04/15/25 14:00 Room Air 04/15/25 13:34 04/15/25 13:33 04/15/25 13:30 04/15/25 13:15 Room Air 04/15/25 13:05 Laboratory Results cbc, chemistry, lfts reviewed lipase reviewed procal, lactate and pregnany test reviewed Diagnostic Findings CT a/p reviewed PG Care Time/CCT Total # of Minutes Spent Total Time Spent with Patient: Total time spent is greater than 50% in coordination of care (as documented) at patient's floor/unit and/or counseling patient: Coding Level of Care Code 59591 INT INP/OBS CARE 3/75MIN Diagnoses Abdominal pain, acute, right upper quadrant R10.11 Crohn's disease K50.90 Hypothyroidism E03.9"
[2025-04-15] MEDS: FAMOTIDINE 20MG IV PUSH 20 MG/5 ML SYR IV STA (17:30)
[2025-04-15] MEDS: DICYCLOMINE HCL 10 MG CAP PO ONE (17:30)
[2025-04-15] MEDS: ONDANSETRON INJ 2 MG/ML 2 ML VIAL ONE (17:33)
[2025-04-15] MEDS: SODIUM CHLORIDE 0.9% 1,000 ML IV SCH (17:41)
[2025-04-15] MEDS: HYDROmorphone INJ 0.5 MG/0.5 ML SYR IV PRN (17:42)
[2025-04-15] MEDS: ONDANSETRON INJ 2 MG/ML 2 ML VIAL IV PRN (17:42)
--- NOTE | 2025-04-15 18:21 | Ultrasound Report ---
US Pelvis COMPARISON: None. HISTORY: Pain TECHNIQUE: The pelvis was scanned in standard fashion with a transabdominal and transvaginal transducer(s) using both garay scale and color Doppler techniques. FINDINGS: The uterus measures 7.3 x 3.3 x 4.4 cm , and there is no evidence of a focal fibroid. The endometrium is within normal limits and measures 4 mm. An IUD appears to be in the appropriate position.. There is trace free fluid in the pelvis is likely physiologic. The right ovary measures 3.1 x 2.6 x 3.0 cm and the left ovary measures 2.5 x 1.8 x 2.9 cm . There is no adnexal mass. There is normal blood flow to the ovaries. IMPRESSION: Normal pelvic ultrasound. Electronically signed by Cory Cullen 04-15-2025 6:20 PM
[2025-04-15] MEDS ORDERED: MELATONIN 3 MG TAB PO PRN (19:32)
[2025-04-15] MEDS ORDERED: ACETAMINOPHEN 500 MG TAB PO PRN (19:32)
[2025-04-15] MEDS: PANTOprazole 40 MG/10 ML SYR IV SCH (20:04)
[2025-04-15 21:57] LABS: Appearance Urine Clear (Clear); Glucose Urine UA Negative (Negative)
[2025-04-15 23:39] LABS: Alanine Aminotransferase 23.0 U/L (7-52); Albumin Level 3.7 gm/dl (3.4-5.0); Alkaline Phosphatase 63.0 U/L (34-104); Bilirubin,Total 1.2 mg/dl (0.2-1.0); Magnesium 1.7 mg/dl (1.7-2.4); Total Protein 5.8 gm/dl (6.0-8.3)
[2025-04-16] MEDS: LEVOTHYROXINE SODIUM 100 MCG TABLET PO SCH (06:05)
[2025-04-16 07:35] VITALS: BP 101/65; PULSE 59; RESP 18; TEMP 98.4; O2SAT 96
[2025-04-16] MEDS: SERTRALINE HCL 50 MG TABLET PO SCH (07:43)
[2025-04-16 08:17] LABS: Hematocrit (blood only) 38.2 % (37.0-47.0); Hemoglobin 13.9 g/dl (12.0-16.0); Mean Corpuscular Hemoglobin 32.4 pg (25.0-34.0); Mean Corpuscular Volume 89.0 fL (80.0-100.0); Platelet Count 144 K/uL (130-400); RDW Standard Deviation 38.8 fL (36.4-46.3); Red Blood Count 4.29 M/uL (4.20-5.40); White Blood Count 3.82 K/ul (4.8-10.8)
[2025-04-16 09:00] LABS: Alanine Aminotransferase 26.0 U/L (7-52); Albumin Level 4.0 gm/dl (3.4-5.0); Alkaline Phosphatase 63.0 U/L (34-104); Anion Gap 6.0 (3-11); Bilirubin,Total 1.3 mg/dl (0.2-1.0); Blood Urea Nitrogen 6.0 mg/dl (6-23); Calcium 8.6 mg/dl (8.6-10.3); Carbon Dioxide 24.0 mmol/L (21-32); Chloride 109.0 mmol/L (98-107); Creatinine Clr Calc Pharmacy 169.2 ml/min; Glucose 92.0 mg/dl (70-99(Fasting)); Potassium 3.8 mmol/L (3.5-5.1); Sodium 139.0 mmol/L (136-145); Total Protein 6.1 gm/dl (6.0-8.3)
[2025-04-16 09:02] LABS: Adenovirus F 40/41 PCR Not Detected (NotDetected); Campylobacter PCR Not Detected (NotDetected); Enteroaggregative E.coli(EAEC) Not Detected (NotDetected); Shiga-like Toxin E.coli (STEC) Not Detected (NotDetected); Vibrio species PCR Not Detected (NotDetected)
--- NOTE | 2025-04-16 09:50 | Discharge Summary ---
"Discharge Summary Date of Service April 16, 2025 Principal Dx & Hospital Course #1 = Principal Diagnosis (1) Abdominal pain, acute, right upper quadrant: (2) Crohn's disease: (3) Hypothyroidism: Plan #Saprovirys | Abdominal Pain | Hx of crohns - Mariella is a 29F with a PMHx of Hypothyroid, GERD, endometriosis, Crohn's and celiacs who presents with concerns of severe RUQ pain. She is s/p cholecystectomy. CT A/P without acute findings. lactate 1.8. TVUS no acute findings, no signs of ovarian torsion. Stool studies revealed Saprovirus, Symptoms are improving today. 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 Provided prescription of Bentyl. Discussed good hand hygiene to prevent transmission. Work note provided. Blood cultures pending #hypothyroid - continue Synthroid Dispo: discharged home today Admission HPI Per Admitting Provider Mariella is a 29F with a PMHx of Hypothyroid, GERD, endometriosis, Crohn's and celiacs who presents with concerns of severe RUQ pain. Pain awoke her from sleep around 0500 with nausea and vomiting. Initially was food, but now bile. No hematemesis. Vomiting has subsided. Patient also reports diarrhea. No fevers, but some chills. No sick contacts. 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 Hx of Crohns - no daily medications, no flares in a long time. Takes Bentyl very occasionally. Feels like the Dilaudid helps the pain, but still having cramping. Pain is very localized to RUQ. No back pain, no urinary symptoms. Discharge Exam General: NAD, VS as above Resp: normal respiratory effort, lungs clear to auscultation CV: RRR, no murmur, Abd: normal bowel sounds, RUQ pain with no guarding, otherwise soft. No CVA tenderness Extremities: Moves all extremities, no edema Neuro: A&O x3, Skin: intact, no lesions noted Discharge Plan Discharge Items Patient Disposition: Home - Self-Care Reason For Visit: RUQ PAIN Discharge Diagnosis: Saprovirus Condition on Discharge: Good Activity: Resume your previous activity Driving/Machine Use: No limitations Weightbearing: Full weightbearing Non-emergency contact: Primary Care Provider Call non-emergency contact if: you have any medication questions, your symptoms worsen and your temperature is above 101 Follow-up/Referrals: PCP,NO [Primary Care Provider] - Diet: Regular Addtl Attending Provider Instructions: Ms. Rievra, You were admitted to the hospital after worsening RUQ pain. You had extensive workup including negative CT abdomen and pelvis and pelvis ultrasound. Your stool studies were positive for sparovirus which is in the same family as norovirus. Supportive care is the treatment - make sure that you are staying hydrated. Ensure good handwashing and do not share drinks with people until you feel better. I have sent in bentyl to the pharmacy for you. No changes to your home medications. You have blood cultures pending at the time of discharge,. If they turn positive you will be notified, you can also check in with the [facility] portal. However, given your symptoms and viral illness, I do not expect they will be positive. CONTACT YOUR PRIMARY CARE PROVIDER if you experience any of the following: Shortness of breath or difficulty breathing Fevers or chills Feeling tired with normal activity or experiencing dizziness or fainting Difficulty following your treatment plan, or difficulty taking medications CALL 911 OR GO TO THE EMERGENCY DEPARTMENT if you experience any of the following: Severe abdominal pain or nausea/vomiting Severe chest pain, or chest pain that radiates (moves) to your jaw or arm Sudden, severe shortness of breath or difficulty breathing Thank you for allowing us to participate in your care. Pending Studies at Discharge: Yes (blood cultures ) Stand-Alone Forms: My [facility], Work/School Release, Smoking Cessation Medications and DC Order Prescriptions: New dicyclomine 10 mg capsule 10 mg PO QID PRN (Reason: abdominal pain) Qty: 20 0RF Continued esomeprazole magnesium [Nexium] 40 mg capsule,delayed release(DR/EC) 0 mg PO QAM Patient Comments: 04/15- otc/no fill history unable to verify acetaminophen [Mapap (acetaminophen)] 325 mg Tablet 650 mg PO Q6H PRN (Reason: pain) Qty: 1 0RF Patient Comments: 04/15- otc unable to verify levothyroxine [Levoxyl] 100 mcg tablet 100 mcg PO UD Rx Instructions: 100 mcg po wed-wed; 150 mcg po on wednesday sertraline 50 mg tablet 50 mg PO DAILY ondansetron 4 mg Tablet,Disintegrating 4 mg PO UD Discharge Orders: Discharge Order (Routine); Ordered 04/16/25 Ordered By: Linda Earl/Other Patient Handouts: Viral Gastroenteritis, Dicyclomine Oral Capsule Admission Data Admit Date/Time: 04/15/25 17:20 Attending Provider: Julio Noriega Admit Provider: Julio Noriega Primary Care Provider: PCP,NO Other Providers: Julio Noriega Other Interventions: Discharge Summary Assessment (RN) Last Done: 04/16/25 11:16 Hospital Stay Data Consultations 04/15/25 16:05 ED Decision to Admit Stat Diagnostic Imagining Performed Abdomen/Pelvis CT 04/15/25 13:15 EXAMINATION: CT of the abdomen and pelvis performed after the administration of IV contrast TECHNIQUE: Helical CT images from the lung bases through the symphysis pubis were obtained with contrast. Coronal and sagittal reformatted images were generated at a workstation for further assessment. Dose reduction techniques were achieved by using automatic exposure control and/or adjustment of mA and/or kV according to patient size and/or use of iterative reconstruction technique. COMPARISON: None HISTORY: Abdominal pain FINDINGS: Lower chest: No consolidation. No pleural effusion or pneumothorax. Liver: No suspicious liver lesions. Portal veins appear patent. Gallbladder: Cholecystectomy Spleen: Normal size. Pancreas: No suspicious pancreatic lesions. The pancreatic duct is not dilated. Adrenal glands: No adrenal nodules. Kidneys: No hydronephrosis or obstructing renal stones. Bladder / Pelvic organs: Unremarkable. IUD. Bowel: No bowel obstruction. No abnormal bowel wall thickening. The appendix is unremarkable. Lymph nodes: No retroperitoneal, mesenteric, or pelvic lymphadenopathy. Peritoneum / Retroperitoneum: No free fluid or air within the abdomen. Vessels: No infrarenal aortic aneurysm. Bones and soft tissues: No suspicious lesion in the bones. IMPRESSION: No acute finding in the abdomen or pelvis Electronically signed by Cory Cullen 04-15-2025 2:38 PM Pelvis Ultrasound 04/15/25 15:25 US Pelvis COMPARISON: None. HISTORY: Pain TECHNIQUE: The pelvis was scanned in standard fashion with a transabdominal and transvaginal transducer(s) using both garay scale and color Doppler techniques. FINDINGS: The uterus measures 7.3 x 3.3 x 4.4 cm , and there is no evidence of a focal fibroid. The endometrium is within normal limits and measures 4 mm. An IUD appears to be in the appropriate position.. There is trace free fluid in the pelvis is likely physiologic. The right ovary measures 3.1 x 2.6 x 3.0 cm and the left ovary measures 2.5 x 1.8 x 2.9 cm . There is no adnexal mass. There is normal blood flow to the ovaries. IMPRESSION: Normal pelvic ultrasound. Electronically signed by Cory Cullen 04-15-2025 6:20 PM Pending Results Patient Have Any Pending Studies at Discharge: Yes (blood cultures ) Discharge Instructions Given to Patient (Per Discharging Provider) Ms. Rivera, You were admitted to the hospital after worsening RUQ pain. You had extensive workup including negative CT abdomen and pelvis and pelvis ultrasound. Your stool studies were positive for sparovirus which is in the same family as norovirus. Supportive care is the treatment - make sure that you are staying hydrated. Ensure good handwashing and do not share drinks with people until you feel better. I have sent in bentyl to the pharmacy for you. No changes to your home medications. You have blood cultures pending at the time of discharge,. If they turn positive you will be notified, you can also check in with the [facility] portal. However, given your symptoms and viral illness, I do not expect they will be positive. CONTACT YOUR PRIMARY CARE PROVIDER if you experience any of the following: Shortness of breath or difficulty breathing Fevers or chills Feeling tired with normal activity or experiencing dizziness or fainting Difficulty following your treatment plan, or difficulty taking medications CALL 911 OR GO TO THE EMERGENCY DEPARTMENT if you experience any of the following: Severe abdominal pain or nausea/vomiting Severe chest pain, or chest pain that radiates (moves) to your jaw or arm Sudden, severe shortness of breath or difficulty breathing Thank you for allowing us to participate in your care. Total Time Total Time Spent Total Time Spent (In Minutes): Time spent day of discharge 40 minutes including direct patient care, medication reconciliation, documentation, review of labs and images, and coordination of care. Coding Level of Care Code 79314 INP/OBS DISCH >30 MIN Diagnoses Abdominal pain, acute, right upper quadrant R10.11 Crohn's disease K50.90 Hypothyroidism E03.9"
[2025-04-16] MEDS: DICYCLOMINE HCL 10 MG CAP PO PRN (10:17)
[2025-04-22] MEDS ORDERED: LEVOTHYROXINE SODIUM 150 MCG TABLET PO SCH (06:30)
== END 2025-04-16 12:24 | disposition home or self-care (01) ==
LOC: 2N 12:56 → ED 12:56 → 2N 18:09